=== PATIENT | male | born 1965 | race Caucasian/White ===

== ENCOUNTER 2016-09-30 15:18 | Inpatient (IN) | payer OTHER, SELFPAY ==
[~2016-09-30] VITALS: Ht 177.8 cm; Wt 73.0 kg
[~2016-09-30 15:18] MED LIST: CIPR500T2 PO; HYDR10TA16 PO; Z.0.NO CURRENT MEDS; [UNRECOGNIZED DRUG - OTHER] PO
[2016-09-30 15:19] VITALS: BP 137/81; PULSE 129; RESP 20; TEMP 99.6; O2SAT 99
[2016-09-30] MEDS ORDERED: SODIUM CHLOR 0.9% 1000 ML INJ 1,000 ML IV SCH (20:37)
[2016-09-30 20:40] VITALS: BP 127/72; PULSE 114; RESP 18; TEMP 98.6; O2SAT 100
[2016-09-30 20:41] VITALS: RESP 18; O2SAT 100
--- NOTE | 2016-09-30 20:41 | PD ---
HPI Chief Complaint: GI Complaint Time Seen by Provider: 20:36 Travel History International Travel<30 days: No Contact w/Intl Traveler<30days: No Traveled to known affect area: No History of Present Illness HPI 51-year-old male presents for evaluation. For the past month he has been having lower abdominal pain, daily diarrhea, decreased appetite, occasional nausea and vomiting. He reports multiple episodes of watery diarrhea daily, up to 20 times a day. He reports mild aching pain in the left right lower quadrants of the abdomen which has been worsening. He also notes some rectal pain associated with the diarrhea. He endorses decreased urine output. Does report that prior to be started the diarrhea and abdominal pain is having occasional bright red blood per rectum. For the Past 4 days has been having fevers as high as 102. He denies any cough, congestion, rash, recent travel, neck stiffness, dietary change, recent antibiotic use. No sick contacts. No dysuria, flank pain. No other complaints. PFSH Past Medical History Cancer: No Diabetes: No Diminished Hearing: No Glaucoma: No Hepatitis: No Hiatal Hernia: No Hypertension: No Kidney Stones: Yes Thyroid Disease: No Tetanus Vaccination: Unknown Influenza Vaccination: No Past Surgical History Genitourinary Surgery: Yes (LITHOTRIPSY 02/2010) Pacemaker: No Social History Alcohol Use: Yes (SOCIALLY, NOT CURRENTLY) Tobacco Use: No (QUIT) Substance Use: No Allergies-Medications (Allergen,Severity, Reaction): Coded Allergies: [place] (Verified Allergy, Mild, 09/30/16) Reported Meds & Prescriptions Reported Meds & Active Scripts Active Review of Systems Except as stated in HPI: all other systems reviewed are Neg Physical Exam Narrative GENERAL: Well-developed well-nourished male in no acute distress SKIN: Warm and dry. HEAD: Atraumatic. Normocephalic. EYES: Pupils equal and round. No scleral icterus. No injection or drainage. ENT: No nasal bleeding or discharge. Mucous membranes pink and moist. NECK: Trachea midline. No JVD. CARDIOVASCULAR: Regular rate and rhythm. No murmur appreciated. RESPIRATORY: No accessory muscle use. Clear to auscultation. Breath sounds equal bilaterally. GASTROINTESTINAL: Abdomen soft, no tenderness to palpation left to right lower quadrant without guarding. Rectal examination reveals no evidence of perirectal abscess, he is Hemoccult-positive. MUSCULOSKELETAL: No obvious deformities. No clubbing. No cyanosis. No edema. NEUROLOGICAL: Awake and alert. No obvious cranial nerve deficits. Motor grossly within normal limits. Normal speech. PSYCHIATRIC: Appropriate mood and affect; insight and judgment normal. Data Data Last Documented VS Orders Complete Blood Count With Diff (09/30/16 20:37) Comprehensive Metabolic Panel (09/30/16 20:37) Lipase (09/30/16 20:37) Prothrombin Time / Inr (Pt) (09/30/16 20:37) Act Partial Throm Time (Ptt) (09/30/16 20:37) Urinalysis - C+S If Indicated (09/30/16 20:37) Ct Abd/Pel W Iv Contrast(Rout) (09/30/16 20:37) Iv Access Insert/Monitor (09/30/16 20:37) Ecg Monitoring (09/30/16 20:37) Oximetry (09/30/16 20:37) Ondansetron Inj (Zofran Inj) (09/30/16 20:45) Pantoprazole Inj (Protonix Inj) (09/30/16 20:45) Sodium Chlor 0.9% 1000 Ml Inj (Ns 1000 M (09/30/16 20:37) Sodium Chloride 0.9% Flush (Ns Flush) (09/30/16 20:45) Blood Culture (09/30/16 20:37) C Diff Toxin Pcr (09/30/16 20:37) Enteric Path (Stool) (09/30/16 20:37) Lactic Acid Sepsis Protocol (09/30/16 20:37) Morphine Inj (Morphine Inj) (09/30/16 22:15) Ciprofloxacin 400 Mg Premix (Cipro 400 M (09/30/16 22:45) Metronidazole 500 Mg Inj (Flagyl 500 Mg (09/30/16 22:45) Iohexol 350 Inj (Omnipaque 350 Inj) (09/30/16 22:51) Admit Order (Ed Use Only) (09/30/16 23:50) MDM Medical Decision Making Medical Screen Exam Complete: Yes Emergency Medical Condition: Yes Medical Record Reviewed: Yes Differential Diagnosis Diverticulitis, colitis, appendicitis, gastroenteritis, dehydration, GI bleed, pyelonephritis Narrative Course 50-year-old male presents with 1 month of multiple episodes of diarrhea daily, decreased appetite, lower abdominal pain, now with fevers for the past 4 days. A rectal examination was performed revealing no evidence of perirectal abscess, he is Hemoccult-positive. He does note that last month he was having episodes of hematochezia. Plan is for lab work, blood cultures, stool cultures, CT abdomen and pelvis. He was given IV fluids and Zofran. 2100: At the end of my shift the patient is being signed out to Dr. Delvalle pending lab work, imaging studies. [facility] Point of Care Internal Pos. & Neg. Controls: Passed Scripts Hydrocodone-Acetaminophen 5-325 mg Tab2 Tab PO Q4H PRN (PAIN SCALE 5 TO 10) #30 TAB Ref 0 Prov:Shan Michaud MD 10/05/16 Sergey Mendez Sep 30, 2016 20:41 Sergey Mendez Sep 30, 2016 20:41
[2016-09-30] MEDS ORDERED: PANTOPRAZOLE SODIUM 40 MG VIAL IVP ONE (20:45)
[2016-09-30] MEDS ORDERED: ONDANSETRON HCL 4 MG/2 ML VIAL IVP ONE (20:45)
[2016-09-30] MEDS ORDERED: SODIUM CHLORIDE 0.9% FLUSH 10 ML FLUSH IV FLUSH PRN (20:45)
[2016-09-30 21:24] LABS: BLOOD, URINE NEG (NEG); COMMENT (UR) CULT NOT INDICATED; CULTURE IF INDICATED CULT NOT INDICATED; GLUCOSE,URINE NEG (NEG); KETONE, URINE NEG (NEG); MUCUS URINE FEW /lpf (OCC); NITRITE,URINE NEG (NEG); URINE COLOR YELLOW (YELLW/STRAW)
[2016-09-30 21:35] LABS: AUTOMATED NEUTROPHIL # 11.6 TH/MM3 (1.8-7.7); BASOPHIL # 0.1 TH/MM3 (0-0.2); BASOPHIL % 0.5 % (0.0-2.0); EOSINOPHIL % 0.3 % (0.0-4.0); HEMATOCRIT 29.6 % (39.0-51.0); LYMPH % 10.6 % (9.0-44.0); LYMPHOCYTE # 1.6 TH/MM3 (1.0-4.8); MEAN CELL VOLUME 67.6 FL (80.0-100.0); MEAN CORPUSCULAR HEMOGLOBIN 20.8 PG (27.0-34.0); MEAN CORPUSCULAR HGB CONC 30.7 % (32.0-36.0); MONO % 9.6 % (0.0-8.0); PLATELET COUNT 672 TH/MM3 (150-450); RED BLOOD COUNT 4.38 MIL/MM3 (4.50-5.90); RED CELL DISTRIBUTION WIDTH 16.9 % (11.6-17.2); WHITE BLOOD COUNT 14.6 TH/MM3 (4.0-11.0)
[2016-09-30 21:38] LABS: APTT (PATIENT) 29.9 SEC (24.3-30.1); INTERNATIONAL NORMALIZED RATIO 1.2 RATIO; PROTHROMBIN TIME - PATIENT 13.6 SEC (9.8-11.6)
[2016-09-30 21:50] LABS: HEMO FLAGS AUTO DIFF
[2016-09-30 21:54] LABS: ANION GAP 12 MEQ/L (5-15); AST (GOT) 10 U/L (15-37); BICARBONATE 25.7 MEQ/L (21.0-32.0); BLOOD UREA NITROGEN 11 MG/DL (7-18); CHLORIDE 95 MEQ/L (98-107); GLOMERULAR FILTRATION RATE 82 ML/MIN (>89); POTASSIUM 3.6 MEQ/L (3.5-5.1); SODIUM (NA) 133 MEQ/L (136-145)
[2016-09-30 21:59] LABS: ALKALINE PHOSPHATASE 88 U/L (45-117); ALT (GPT) 17 U/L (12-78); TOTAL BILIRUBIN ADULT 0.5 MG/DL (0.2-1.0)
[2016-09-30] MEDS ORDERED: MORPHINE SULFATE 4 MG/ML INJ IV PUSH ONE (22:15)
[2016-09-30 22:45] LABS: BANDS 11 % (0-6); BASOPHILS 1 % (0-2); EOSINOPHILS 1 % (0-4); MYELOCYTES 1 % (0-0); NEUTROPHIL # MANUAL DIFF 11.5 TH/MM3 (1.8-7.7); POLYS (SEG NEUTROPHILS) 67 % (16-70); SCAN/DIFF FINAL DIFF MANUAL; WBC DIFF SAMPLE 100
[2016-09-30] MEDS ORDERED: CIPROFLOXACIN 400 MG PREMIX 200 ML IV ONE (22:45)
[2016-09-30] MEDS ORDERED: metroNIDAZOLE 500 MG INJ 100 ML IV ONE (22:45)
[2016-09-30 22:47] LABS: OVALOCYTES 1+ (NORMAL); PLATELET ESTIMATE SMEAR HIGH (NORMAL); PLATELET MORPHOLOGY NORMAL (NORMAL); TOXIC GRANULATION 1+ (NORMAL)
[2016-09-30] MEDS ORDERED: IOHEXOL 350 MG/ML 10 ML VIAL (for RAD DIAG) IV ONE (22:51)
[2016-09-30 23:14] LABS: C. DIFF EPI 027 PRESUMPTIVE NEGATIVE (NEGATIVE); C. DIFF TOXIN PCR NEGATIVE (NEGATIVE)
--- NOTE | 2016-09-30 23:22 | RADRPT ---
EXAM DATE/TIME: 09/30/2016 22:49 [place] COMPARISON: No previous studies available for comparison. INDICATIONS : Increased fever for 3 days with diffuse abdominal and anal pain; diarrhea. IV CONTRAST: 93 cc Omnipaque 350 (iohexol) IV ORAL CONTRAST: No oral contrast ingested. RADIATION DOSE: 7.64 CTDIvol (mGy) MEDICAL HISTORY : Renal calculi. SURGICAL HISTORY : Lithotripsy ENCOUNTER: Initial ACUITY: 3 days PAIN SCALE: 5/10 LOCATION: Abdomen/pelvis TECHNIQUE: Volumetric scanning of the abdomen and pelvis was performed. Using automated exposure control and ad justment of the mA and/or kV according to patient size, radiation dose was kept as low as reasonably achievable to obtain optimal diagnostic quality images. FINDINGS: Lung bases are clear. There is marked abnormality in the perirectal and perianal region. The rectal wall is thickened to at least 2.4 cm and there is a suspected 3.1 cm perirectal abscess. The rectal wall thickening extends cephalad to the distal colon. They also appear to be small bowel loops tethered to this presumed infl ammatory process. Cannot exclude neoplasm. There is associated severe constipation. Direct visualizat ion of this area would be recommended. As the small bowel obstruction. No free air or significant free fluid. No acute findings the liver, spleen, kidneys, right adrenal pancreas. 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 No acute bony abnormality. CONCLUSION: 1. Markedly abnormal anorectal region with mural thickening of the rectum extending cephalad into the distal sigmoid colon. Rectal wall is thickened up to 2.4 cm and there is a questionable 3 cm perirec lizeth abscess. Cannot exclude neoplasm. There is associated severe constipation. Jasiel Cruz MD on September 30, 2016 at 23:10 Board Certified Radiologist. This report was verified electronically.
[2016-09-30 23:56] VITALS: BP 115/78; PULSE 107; RESP 18; TEMP 99.7; O2SAT 100
[2016-10-01] VITALS (7 sets, daily range): BP systolic 117–137; BP diastolic 71–85; PULSE 88–102; RESP 17–21; TEMP 98.3–100.6; O2SAT 97–100
--- NOTE | 2016-10-01 00:18 | PD ---
Data Data Last Documented VS Vital Signs Date Time Temp Pulse Resp B/P Pulse Ox O2 Delivery O2 Flow Rate FiO2 09/30/16 20:41 18 100 Room Air 09/30/16 20:40 98.6 114 127/72 Orders Complete Blood Count With Diff (09/30/16 20:37) Comprehensive Metabolic Panel (09/30/16 20:37) Lipase (09/30/16 20:37) Prothrombin Time / Inr (Pt) (09/30/16 20:37) Act Partial Throm Time (Ptt) (09/30/16 20:37) Urinalysis - C+S If Indicated (09/30/16 20:37) Ct Abd/Pel W Iv Contrast(Rout) (09/30/16 20:37) Iv Access Insert/Monitor (09/30/16 20:37) Ecg Monitoring (09/30/16 20:37) Oximetry (09/30/16 20:37) Ondansetron Inj (Zofran Inj) (09/30/16 20:45) Pantoprazole Inj (Protonix Inj) (09/30/16 20:45) Sodium Chlor 0.9% 1000 Ml Inj (Ns 1000 M (09/30/16 20:37) Sodium Chloride 0.9% Flush (Ns Flush) (09/30/16 20:45) Blood Culture (09/30/16 20:37) C Diff Toxin Pcr (09/30/16 20:37) Enteric Path (Stool) (09/30/16 20:37) Lactic Acid Sepsis Protocol (09/30/16 20:37) Morphine Inj (Morphine Inj) (09/30/16 22:15) Ciprofloxacin 400 Mg Premix (Cipro 400 M (09/30/16 22:45) Metronidazole 500 Mg Inj (Flagyl 500 Mg (09/30/16 22:45) Iohexol 350 Inj (Omnipaque 350 Inj) (09/30/16 22:51) Admit Order (Ed Use Only) (09/30/16 23:50) Labs Laboratory Tests Test 09/30/16 20:55 White Blood Count 14.6 TH/MM3 Red Blood Count 4.38 MIL/MM3 Hemoglobin 9.1 GM/DL Hematocrit 29.6 % Mean Corpuscular Volume 67.6 FL Mean Corpuscular Hemoglobin 20.8 PG Mean Corpuscular Hemoglobin 30.7 % Concent Red Cell Distribution Width 16.9 % Platelet Count 672 TH/MM3 Mean Platelet Volume 7.0 FL Neutrophils (%) (Auto) 79.0 % Lymphocytes (%) (Auto) 10.6 % Monocytes (%) (Auto) 9.6 % Eosinophils (%) (Auto) 0.3 % Basophils (%) (Auto) 0.5 % Neutrophils # (Auto) 11.6 TH/MM3 Lymphocytes # (Auto) 1.6 TH/MM3 Monocytes # (Auto) 1.4 TH/MM3 Eosinophils # (Auto) 0.0 TH/MM3 Basophils # (Auto) 0.1 TH/MM3 CBC Comment AUTO DIFF Differential Total Cells 100 Counted Neutrophils % (Manual) 67 % Band Neutrophils % 11 % Lymphocytes % 11 % Monocytes % 8 % Eosinophils % 1 % Basophils % 1 % Neutrophils # (Manual) 11.5 TH/MM3 Myelocytes 1 % Differential Comment FINAL DIFF MANUAL Atypical Lymphocytes % Toxic Granulation 1+ Platelet Estimate HIGH Platelet Morphology Comment NORMAL Ovalocytes 1+ Prothrombin Time 13.6 SEC Prothromb Time International 1.2 RATIO Ratio Activated Partial 29.9 SEC Thromboplast Time Urine Color YELLOW Urine Turbidity CLEAR Urine pH 5.0 Urine Specific [place] 1.015 Urine Protein NEG mg/dL Urine Glucose (UA) NEG mg/dL Urine Ketones NEG mg/dL Urine Occult Blood NEG Urine Nitrite NEG Urine Bilirubin NEG Urine Urobilinogen LESS THAN 2.0 MG/DL Urine Leukocyte Esterase NEG Urine WBC LESS THAN 1 /hpf Urine Mucus FEW /lpf Microscopic Urinalysis Comment CULT NOT INDICATED Stool C. difficile Toxin (PCR) NEGATIVE Stl C. difficile Toxin PRESUMPTIVE Epiderm 027 NEGATIVE Sodium Level 133 MEQ/L Potassium Level 3.6 MEQ/L Chloride Level 95 MEQ/L Carbon Dioxide Level 25.7 MEQ/L Anion Gap 12 MEQ/L Blood Urea Nitrogen 11 MG/DL Creatinine 0.96 MG/DL Estimat Glomerular Filtration 82 ML/MIN Rate Random Glucose 116 MG/DL Lactic Acid Level 1.8 mmol/L Calcium Level 9.1 MG/DL Total Bilirubin 0.5 MG/DL Aspartate Amino Transf 10 U/L (AST/SGOT) Alanine Aminotransferase 17 U/L (ALT/SGPT) Alkaline Phosphatase 88 U/L Total Protein 7.5 GM/DL Albumin 2.9 GM/DL Lipase 64 U/L [facility] Supervised Visit with MARTELL: Yes Narrative Course The history, exam, and medical decision-making in the associated midlevel provider note were completed with my assistance. I reviewed and agree with the findings presented. I attest that I had a [id number] encounter with the patient on the same day, and personally performed and documented my assessment and findings in the medical record. *My assessment and Findings: This is a 51-year-old male who presents with subacute lower abdominal pain, copious diarrhea and rectal discomfort associated with fevers. On arrival he had a low-grade fever and was tachycardic. He is leukocytosis with a bandemia. Lactic acid is normal. Patient was given IV Cipro, Flagyl and IV fluids. CT scan demonstrates rectal abnormality with a possible perirectal abscess although none was appreciated on physician technical services assistant exam. There is also a concern for possible malignancy. I think the patient would benefit from colorectal consultation and continued antibiotic therapy. Patient was admitted. Physician Communication Physician Communication Discussed with Dr. Gallegos Diagnosis Primary Impression: Sepsis Qualified Code: A41.9 - Sepsis, due to unspecified organism Admitting Information Admitting Physician Requests: it Jihan Delvalle MD Oct 01, 2016 00:18
[2016-10-01] MEDS ORDERED: ACETAMINOPHEN 325 MG TAB PO PRN (00:30)
[2016-10-01] MEDS ORDERED: MORPHINE SULFATE 4 MG/ML INJ IV PRN (00:30)
[2016-10-01] MEDS ORDERED: NALOXONE HCL 0.4 MG/ML AMP IV PRN (00:30)
[2016-10-01] MEDS ORDERED: ACETAMINOPHEN 325 MG TAB PO ONE (00:30)
[2016-10-01] MEDS ORDERED: SODIUM CHLORIDE 0.9% FLUSH 10 ML FLUSH IV FLUSH PRN (00:30)
[2016-10-01] MEDS ORDERED: ONDANSETRON HCL 4 MG/2 ML VIAL IVP PRN (00:30)
[2016-10-01] MEDS ORDERED: METOCLOPRAMIDE HCL 10 MG/2 ML VIAL IV PUSH PRN (00:30)
[2016-10-01] MEDS ORDERED: oxyCODONE/ACETAMINOPHEN 5 MG/325 MG TAB PO PRN (00:30)
[2016-10-01] MEDS: oxyCODONE/ACETAMINOPHEN 10 MG/325 MG TAB PO PRN ×3 (00:40→20:29)
[2016-10-01] MEDS: SODIUM CHLOR 0.9% 1000 ML INJ 1,000 ML IV SCH ×3 (01:08→20:16)
--- NOTE | 2016-10-01 04:57 | HHI.HP ---
[facility] No Primary Care Physician Admission Diagnosis sepsis, perirectal abscess Diagnoses: Travel History International Travel<30 Days: No Contact w/Intl Traveler <30 Da: No Traveled to Known Affected Are: No History of Present Illness 51-year-old male with history of nephrolithiasis, back surgery 30 years ago, who presents with a four-day history of dull, intermittent, nonradiating lower abdominal pain, worse with urination, as well as sharp intermittent, nonradiating rectal pain, exacerbations of which are accompanied by fevers, as high as 101. He also reports watery diarrhea over this time, feels as if urine is backing up from his bladder and going through rectum. Denies any dysuria, does report lower abdominal pain with urination. Patient reports an 85 pound weight loss over the past year which she is accomplished with diet and exercise. Review of Systems Performed and negative except for history of present illness and past medical history. Past Family Social History Past Medical History Nephrolithiasis, with kidney infection in 2010 Past Surgical History Lithotripsy Back surgery 30 years ago Reported Medications Advil [id number] as needed. Allergies: Coded Allergies: [place] (Verified Allergy, Mild, 09/30/16) Family History Mother with nasal cancer, passed way from [facility] at 81 years old. Father with pancreatic cancer past with age 77 Social History Patient smoked one pack per day for 20 years, quit 20 years ago. Patient smokes marijuana occasionally. Physical Exam Vital Signs Vital Signs Date Time Temp Pulse Resp B/P Pulse Ox O2 Delivery O2 Flow Rate FiO2 09/30/16 23:56 99.7 107 18 115/78 100 Room Air 09/30/16 20:41 18 100 Room Air 09/30/16 20:40 98.6 114 18 127/72 100 Room Air 09/30/16 15:19 99.6 129 20 137/81 99 Room Air Physical Exam GENERAL: This is a well-nourished, well-developed patient, in no apparent distress. Alert and oriented 3. SKIN: No rashes, ecchymoses or lesions. Cool and dry. HEAD: Atraumatic. Normocephalic. No temporal or scalp tenderness. EYES: Pupils equal round and reactive. Extraocular motions intact. No scleral icterus. No injection or drainage. ENT: Nose without bleeding, purulent drainage or septal hematoma. Throat without erythema, tonsillar hypertrophy or exudate. Uvula midline. Airway patent. NECK: Trachea midline. No JVD or lymphadenopathy. Supple, nontender, no meningeal signs. CARDIOVASCULAR: Regular rate and rhythm without murmurs, gallops, or rubs. RESPIRATORY: Clear to auscultation. Breath sounds equal bilaterally. No wheezes , rales, or rhonchi. GASTROINTESTINAL: Abdomen soft, nondistended. No hepato-splenomegaly, or palpable masses. No guarding. Patient does have tenderness to moderate palpation in bilateral lower abdominal quadrants. MUSCULOSKELETAL: Extremities without clubbing, cyanosis, or edema. No joint tenderness, effusion, or edema noted. No calf tenderness. Negative Homans sign bilaterally. NEUROLOGICAL: Awake and alert. Cranial nerves II through XII intact. Motor and sensory grossly within normal limits. Five out of 5 muscle strength in all muscle groups. Normal speech. Laboratory Laboratory Tests Test 09/30/16 20:55 White Blood Count 14.6 Red Blood Count 4.38 Hemoglobin 9.1 Hematocrit 29.6 Mean Corpuscular Volume 67.6 Mean Corpuscular Hemoglobin 20.8 Mean Corpuscular Hemoglobin 30.7 Concent Red Cell Distribution Width 16.9 Platelet Count 672 Mean Platelet Volume 7.0 Neutrophils (%) (Auto) 79.0 Lymphocytes (%) (Auto) 10.6 Monocytes (%) (Auto) 9.6 Eosinophils (%) (Auto) 0.3 Basophils (%) (Auto) 0.5 Neutrophils # (Auto) 11.6 Lymphocytes # (Auto) 1.6 Monocytes # (Auto) 1.4 Eosinophils # (Auto) 0.0 Basophils # (Auto) 0.1 CBC Comment AUTO DIFF Differential Total Cells 100 Counted Neutrophils % (Manual) 67 Band Neutrophils % 11 Lymphocytes % 11 Monocytes % 8 Eosinophils % 1 Basophils % 1 Neutrophils # (Manual) 11.5 Myelocytes 1 Differential Comment FINAL DIFF MANUAL Atypical Lymphocytes Toxic Granulation 1+ Platelet Estimate HIGH Platelet Morphology Comment NORMAL Ovalocytes 1+ Prothrombin Time 13.6 Prothromb Time International 1.2 Ratio Activated Partial 29.9 Thromboplast Time Urine Color YELLOW Urine Turbidity CLEAR Urine pH 5.0 Urine Specific [place] 1.015 Urine Protein NEG Urine Glucose (UA) NEG Urine Ketones NEG Urine Occult Blood NEG Urine Nitrite NEG Urine Bilirubin NEG Urine Urobilinogen LESS THAN 2.0 Urine Leukocyte Esterase NEG Urine WBC LESS THAN 1 Urine Mucus FEW Microscopic Urinalysis Comment CULT NOT INDICATED Stool C. difficile Toxin (PCR) NEGATIVE Stl C. difficile Toxin PRESUMPTIVE Epiderm 027 NEGATIVE Sodium Level 133 Potassium Level 3.6 Chloride Level 95 Carbon Dioxide Level 25.7 Anion Gap 12 Blood Urea Nitrogen 11 Creatinine 0.96 Estimat Glomerular Filtration 82 Rate Random Glucose 116 Lactic Acid Level 1.8 Calcium Level 9.1 Total Bilirubin 0.5 Aspartate Amino Transf 10 (AST/SGOT) Alanine Aminotransferase 17 (ALT/SGPT) Alkaline Phosphatase 88 Total Protein 7.5 Albumin 2.9 Lipase 64 Date/Time Procedure Status Source Growth 09/30/16 21:00 Aerobic Blood Culture Received Blood Peripheral Pending 09/30/16 21:00 Anaerobic Blood Culture Received Blood Peripheral Pending 09/30/16 20:55 Received Stool Stool Pending Result Diagram: 09/30/16205409/30/162054 Imaging Last Impressions Abdomen/Pelvis CT 09/30/162036 Signed Impressions: Service Date/Time: Friday, September 30, 2016 22:49 - CONCLUSION: 1. Markedly abnormal anorectal region with mural thickening of the rectum extending cephalad into the distal sigmoid colon. Rectal wall is thickened up to 2.4 cm and there is a questionable 3 cm perirectal abscess. Cannot exclude neoplasm. There is associated severe constipation. Jasiel Cruz MD Assessment and Plan Assessment and Plan //Sepsis. Leukocytosis, tachycardia -Likely secondary to perirectal abscess as on CT. -Blood cultures pending. Urinalysis appears noninfectious. -Continue Cipro and Flagyl started in the ER Await colorectal surgery consultation. //Microcytic Anemia. -Suspect iron deficiency anemia, likely from chronic lower GI bleed. //Perirectal abscess //Possible malignancy. //Severe constipation on CT. -With intentional weight loss 85 pounds over the past year PSA ordered and pending. Antibiotics.- -Laxative unlikely to be useful in the setting of obstruction -Colorectal surgery evaluation. //Hyponatremia. Mild. Follow. //Prophylaxis. SCDs. AC as per surgical service Discussed Condition With Patient, nurse, ED physician. Physician Certification 2 Midnight Certification Type: Admission for Inpatient Services Order for Inpatient Services The services are ordered in accordance with Medicare regulations or non- Medicare payer requirements, as applicable. In the case of services not specified as inpatient-only, they are appropriately provided as inpatient services in accordance with the 2-midnight benchmark. Estimated LOS (days): 2 days is the estimated time the patient will need to remain in the hospital, assuming treatment plan goals are met and no additional complications. Post-Hospital Plan: Not yet determined Jhon Gallegos MD Oct 01, 2016 04:57
[2016-10-01] MEDS: metroNIDAZOLE 500 MG INJ 100 ML IV SCH ×4 (07:24→23:03)
[2016-10-01] MEDS: SODIUM CHLORIDE 0.9% FLUSH 10 ML FLUSH IV FLUSH SCH ×2 (09:00→20:34)
[2016-10-01] MEDS ORDERED: MAGNESIUM CITRATE SOLN 300 ML BTL PO ONE (09:00)
[2016-10-01] MEDS: CIPROFLOXACIN 400 MG PREMIX 200 ML IV SCH ×2 (11:24→20:28)
[2016-10-01] MEDS ORDERED: LACTATED RINGER'S 1000 ML INJ 1,000 ML IV ONE ×2 (12:00)
[2016-10-01] MEDS ORDERED: PROPOFOL 200 MG/20 ML AMP IV ONE ×2 (12:00)
[2016-10-01] MEDS ORDERED: PHENYLEPH/NS 1000 MCG/10 ML SYR IV ONE ×2 (12:00)
--- NOTE | 2016-10-01 17:33 | HHI.PR ---
Subjective Remarks This is a pleasant 51 y/o male with history of Nephrolithiasis, back surgery 30 years ago, came to ER with abdominal pain Rectal pain, fever, was admitted with diagnosis of Sepsis, started on Cipro and Flagyl, status post consult by Colon and rectal development specialist, has Perirectal Abscess, rule out Malignancy, has Severe Constipation on CT scan, will have procedure later today, at this time with his Son in the room. following. Objective Vital Signs Date Time Temp Pulse Resp B/P Pulse Ox O2 Delivery O2 Flow Rate FiO2 10/01/16 16:00 100.6 102 18 137/80 98 10/01/16 14:28 91 17 123/85 98 10/01/16 12:45 99.6 97 19 128/80 97 Room Air 10/01/16 09:31 16 10/01/16 07:25 97 17 131/80 100 Room Air 10/01/16 04:47 88 18 120/75 100 Room Air 09/30/16 23:56 99.7 107 18 115/78 100 Room Air 09/30/16 20:41 18 100 Room Air 09/30/16 20:40 98.6 114 18 127/72 100 Room Air I/O 09/30/16 09/30/16 09/30/16 10/01/16 10/01/16 10/01/16 07:00 15:00 23:00 07:00 15:00 23:00 Intake Total 150 ml Balance 150 ml Intake Oral 150 ml # Voids 1 # Bowel Movements 1 Result Diagram: 09/30/16205409/30/162054 Nagi Isabel MD Oct 01, 2016 17:33
[2016-10-01] MEDS ORDERED: BUPIVACAINE/EPINEPHRINE 0.5% PF 30 ML VIAL ONE (18:05)
[2016-10-01] MEDS ORDERED: LIDOCAINE 1%/EPINEPHrine 1:100,000 SOLN 50 ML VIAL ONE (18:06)
[2016-10-01] MEDS ORDERED: BACITRACIN TOP OINT 15 GM TUBE ONE (18:06)
[2016-10-01] MEDS ORDERED: MIDAZOLAM HCL 2 MG/2 ML VIAL ONE (19:15)
--- NOTE | 2016-10-01 19:16 | HHI.PR ---
Immediate Post Op Note Procedure Date: Oct 01, 2016 Pre Op Diagnosis: Rectal mass/abscess Post Op Diagnosis: Lg rectal cancer Surgeon: Shan Michaud Automation Driver(s): none Procedure: EUA, Sigmoidoscopy/bx Findings: lg cancer rectum, partially obstructing - bx Complications: none Specimen(s) removed: rectal bx Estimated blood loss: min Anesthesia: MAC Drains: None IVF Patient to: PACU Patient Condition: Good Shan Michaud MD Oct 01, 2016 19:16
[2016-10-02] VITALS (8 sets, daily range): BP systolic 121–134; BP diastolic 64–88; PULSE 97–114; RESP 18–20; TEMP 97.6–98.9; O2SAT 96–99
[2016-10-02] MEDS: oxyCODONE/ACETAMINOPHEN 10 MG/325 MG TAB PO PRN ×2 (02:12→09:49)
[2016-10-02 04:55] LABS: AUTOMATED NEUTROPHIL # 7.5 TH/MM3 (1.8-7.7); BASOPHIL % 0.4 % (0.0-2.0); EOSINOPHIL # 0.2 TH/MM3 (0-0.4); EOSINOPHIL % 1.6 % (0.0-4.0); HEMATOCRIT 24.7 % (39.0-51.0); LYMPH % 12.2 % (9.0-44.0); LYMPHOCYTE # 1.2 TH/MM3 (1.0-4.8); MEAN CELL VOLUME 67.7 FL (80.0-100.0); MEAN CORPUSCULAR HEMOGLOBIN 21.4 PG (27.0-34.0); MEAN CORPUSCULAR HGB CONC 31.6 % (32.0-36.0); MONO % 10.3 % (0.0-8.0); NEUT % 75.5 % (16.0-70.0); PLATELET COUNT 530 TH/MM3 (150-450); RED BLOOD COUNT 3.65 MIL/MM3 (4.50-5.90); RED CELL DISTRIBUTION WIDTH 17.2 % (11.6-17.2); WHITE BLOOD COUNT 9.9 TH/MM3 (4.0-11.0)
[2016-10-02 04:57] LABS: HEMO FLAGS AUTO DIFF
[2016-10-02 05:05] LABS: BICARBONATE 29.1 MEQ/L (21.0-32.0); MAGNESIUM 2.4 MG/DL (1.5-2.5); POTASSIUM 4.2 MEQ/L (3.5-5.1)
[2016-10-02 05:42] LABS: OVALOCYTES 1+ (NORMAL)
[2016-10-02 05:43] LABS: SCAN/DIFF AUTO DIFF CONFIRMED
[2016-10-02] MEDS: SODIUM CHLOR 0.9% 1000 ML INJ 1,000 ML IV SCH (06:50)
[2016-10-02] MEDS: metroNIDAZOLE 500 MG INJ 100 ML IV SCH ×3 (06:50→20:49)
[2016-10-02] MEDS ORDERED: SODIUM CHLOR 0.9% 250 ML INJ 250 ML IV ONE (08:00)
--- NOTE | 2016-10-02 08:03 | MB ---
cc: BEV VICENTE DATE OF CONSULTATION 10/02/2016 REASON FOR CONSULTATION I have been asked to see the patient by Dr. Shan Michaud who is a colorectal surgeon for a new diagnosis of rectal cancer. PATIENT PROFILE The patient is a 51-year white male who is . He was once. He lives alone. He has two children a son age 22 and another age 23. He has not worked in several years. In the past, he was in the [employer] business in [place], [place]. He recently returned from [place] to this area in February of 2016 and prior to coming here was taking care of his mother who required a caregiver and has since . Tobacco: the patient stopped smoking 15 years ago and previously smoked a pack of cigarettes per day for 20 years. He has two or three drinks a week. HISTORY OF PRESENT ILLNESS The patient is a 51-year-old male who dates his current problem back to approximately May 2016 when he developed diarrhea and episodic constipation. He has had a 70-80 pounds weight loss over the past one to two years. He has had occasional abdominal cramps. Three or four days ago he felt worse and noted fevers in the range of 102. It is for this reason that he went to the emergency room. He also has had a slight amount of blood per rectum. He had a CT of the abdomen and pelvis on 09/30/2016. This showed a markedly abnormal anorectal region with mural thickening of the rectum extending cephalad into the distal sigmoid colon. The rectal wall was thickened up to 2.4 cm and there was a questionable 3 cm perirectal abscess. There was associated severe constipation. Other studies include a hemoglobin of 7.8, white count 9900, platelets 530,000, MCV of 67. endoscopy showed a rectal mass Lytes, BUN, creatinine and liver function tests are normal except for an albumin of 2.9. A CEA is 11.8. A PSA is 0.46. PAST SURGICAL HISTORY 1. Lithotripsy eight years ago 2. Greater than 20 years ago, the patient had surgery involving the lumbosacral spine at L5 and S1 for a herniated disk. PAST MEDICAL HISTORY No previous medical problems. MEDICATIONS None ALLERGIES No allergies to medications. FAMILY HISTORY Father at age 77 of pancreatic cancer. Mother at age 81 of congestive heart failure. The patient has four sisters who are well and have no history of malignancy. REVIEW OF SYSTEMS VISION: No problem. HEARING: Hearing is fine. CARDIOVASCULAR: No chest pain, palpitations, orthopnea, PND. RESPIRATORY: No fever, night sweats, chills, cough, shortness of breath. GI: Notable for abdominal pain, cramping, diarrhea, constipation, occasional blood. : Over the past several days he has had some difficulty initiating urinary stream. MUSCULOSKELETAL: No bone pain. NEUROLOGIC: No weakness. PSYCHIATRIC: No problems. SKIN: No problems. PHYSICAL EXAM: Physical exam reveals a gentleman who appears chronically ill. He is gaunt and pale. VITAL SIGNS: Blood pressure 130/80, respiratory rate 20, pulse 90, afebrile. O2 sat 99%. HEAD: Normocephalic. Sclerae and conjunctivae are normal. Oropharynx unremarkable. NECK: There is no cervical, supraclavicular, axillary or inguinal adenopathy. HEART: Regular rhythm. LUNGS: Clear without rales, wheezes or rhonchi. ABDOMEN: Soft. No hepatosplenomegaly. No masses. EXTREMITIES: No edema. MUSCULOSKELETAL: No bone pain. NEUROLOGIC: No weakness. RECTAL: I can feel a tumor as soon as the finger is extended several centimeters into the anal canal. I did not go beyond this as the exam became painful, but the tumor is palpable at the anorectal verge. ASSESSMENT The patient is a 51-year-old male. He has a locally advanced carcinoma which appears to originate in the rectum. PLAN 1. I have spoken with Dr. Michaud and the patient will require a diverting colostomy. He is already having signs and symptoms of obstruction. He has lost 60 or [address] scan of the thorax to rule out metastatic disease. 3. Assuming that this is a rectal cancer and that there is not extensive metastatic disease to the lungs, I would recommend radiation therapy with oral Xeloda preoperatively. Following this, he should undergo surgery. Following this, he would receive some form of adjuvant chemotherapy. This was explained to the patient. I discussed this with Dr. Michaud. I also spoke to the patients ex- to is a nurse and has worked at [employer] for many years. MD BUSHRA Chris/JEET Elliott: 10/02/2016/6:56 AM /7:42 AM [email or web address]
[2016-10-02] MEDS ORDERED: IOHEXOL 350 MG/ML 10 ML VIAL (for RAD DIAG) IV ONE (08:04)
--- NOTE | 2016-10-02 08:16 | RADRPT ---
EXAM DATE/TIME: 10/02/2016 08:01 [facility] COMPARISON: CT ABDOMEN & PELVIS W CONTRAST, September 30, 2016, 22:49. INDICATIONS : History of rectal cancer, evaluate for metastatic disease. IV CONTRAST: 50 cc Omnipaque 350 (iohexol) IV RADIATION DOSE: 4.11 CTDIvol (mGy) MEDICAL HISTORY : Carcinoma, rectal. SURGICAL HISTORY : None. ENCOUNTER: Initial ACUITY: 1 day PAIN SCALE: 0/10 LOCATION: chest TECHNIQUE: Volumetric scanning of the chest was performed. Using automated exposure control and adjustment of t he mA and/or kV according to patient size, radiation dose was kept as low as reasonably achievable to obtain optimal diagnostic quality images. FINDINGS: Examination of the lung mayer demonstrates no evidence of pulmonary nodule. No pleural fluid is iden tified. Examination of the mediastinum demonstrates no abnormally enlarged lymph nodes by CT criteria. No axi llary or hilar abnormalities are identified. Coronary artery calcifications are present. 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 No evidence of acute thoracic abnormality. No masses are identified. No evidence of metastatic dis ease. Buck Quiroz MD on October 02, 2016 at 8:10 Board Certified Radiologist. This report was verified electronically.
[2016-10-02 08:31] LABS: FERRITIN 290 NG/ML (26-388); TRANSFERRIN IRON PROFILE 119 MG/DL (200-360)
[2016-10-02] MEDS: SODIUM CHLORIDE 0.9% FLUSH 10 ML FLUSH IV FLUSH SCH (09:00)
[2016-10-02] MEDS: CIPROFLOXACIN 400 MG PREMIX 200 ML IV SCH (09:51)
--- NOTE | 2016-10-02 10:02 | HHI.PR ---
Subjective Remarks This is a pleasant 51 y/o male with history of Nephrolithiasis, back surgery 30 years ago, came to ER with abdominal pain Rectal pain, fever, was admitted with diagnosis of Sepsis, started on Cipro and Flagyl, status post consult by Colon and rectal surgery manager, now status post Sigmoidoscopy, found Large Rectal Cancer, status post Biopsy. by Doctor Lazaromariano Seen in his bedroom in the presence of his Ex and his Son and he states with his family that he is very confident that with treatment he will do better, no Nausea, vomit or diarrhea stable. he will need Dietitian consult after procedures performed. Objective Vital Signs Date Time Temp Pulse Resp B/P Pulse Ox O2 Delivery O2 Flow Rate FiO2 10/02/16 08:00 98.9 114 20 132/77 97 10/01/16 23:42 98.3 97 21 132/79 99 10/01/16 20:00 99.0 98 20 117/71 97 10/01/16 19:30 100 15 115/73 95 Room Air 10/01/16 19:15 100 17 126/85 97 Nasal Cannula 2 10/01/16 19:10 99.7 90 15 115/76 99 Nasal Cannula 2 10/01/16 16:00 100.6 102 18 137/80 98 10/01/16 14:28 91 17 123/85 98 10/01/16 12:45 99.6 97 19 128/80 97 Room Air I/O 10/01/16 10/01/16 10/01/16 10/02/16 10/02/16 10/02/16 07:00 15:00 23:00 07:00 15:00 23:00 Intake Total 150 ml 1120 ml 1251 ml Output Total 6 ml Balance 150 ml 1114 ml 1251 ml Intake Oral 150 ml 120 ml 240 ml IV Total 1011 ml Other 1000 ml Output Stool Total 1 ml Estimated Blood Loss 5 ml # Voids 1 2 # Bowel Movements 0 0 Result Diagram: 10/02/1643110/02/16 043 Imaging Last Impressions Chest CT 10/02/16 0600 Signed Impressions: Service Date/Time: Sunday, October 02, 2016 08:01 - CONCLUSION: 1. No evidence of acute thoracic abnormality. No masses are identified. No evidence of metastatic disease. Buck Quiroz MD Abdomen/Pelvis CT 09/30/[id number] Signed Impressions: Service Date/Time: Friday, September 30, 2016 22:49 - CONCLUSION: 1. Markedly abnormal anorectal region with mural thickening of the rectum extending cephalad into the distal sigmoid colon. Rectal wall is thickened up to 2.4 cm and there is a questionable 3 cm perirectal abscess. Cannot exclude neoplasm. There is associated severe constipation. Jasiel Cruz MD Procedures Status post Sigmoidoscopy and Biopsy Other Results Laboratory Tests Test 09/30/16 10/01/16 10/02/16 20:55 06:36 04:32 Differential Total Cells 100 Counted Neutrophils % (Manual) 67 % Band Neutrophils % 11 % Lymphocytes % 11 % Monocytes % 8 % Eosinophils % 1 % Basophils % 1 % Neutrophils # (Manual) 11.5 TH/MM3 Myelocytes 1 % Atypical Lymphocytes % Toxic Granulation 1+ Platelet Estimate HIGH Platelet Morphology Comment NORMAL Prothrombin Time 13.6 SEC Prothromb Time International 1.2 RATIO Ratio Activated Partial 29.9 SEC Thromboplast Time Urine Color YELLOW Urine Turbidity CLEAR Urine pH 5.0 Urine Specific [place] 1.015 Urine Protein NEG mg/dL Urine Glucose (UA) NEG mg/dL Urine Ketones NEG mg/dL Urine Occult Blood NEG Urine Nitrite NEG Urine Bilirubin NEG Urine Urobilinogen LESS THAN 2.0 MG/DL Urine Leukocyte Esterase NEG Urine WBC LESS THAN 1 /hpf Urine Mucus FEW /lpf Microscopic Urinalysis Comment CULT NOT INDICATED Stool C. difficile Toxin (PCR) NEGATIVE Stl C. difficile Toxin PRESUMPTIVE Epiderm 027 NEGATIVE Lactic Acid Level 1.8 mmol/L Total Bilirubin 0.5 MG/DL Aspartate Amino Transf 10 U/L (AST/SGOT) Alanine Aminotransferase 17 U/L (ALT/SGPT) Alkaline Phosphatase 88 U/L Total Protein 7.5 GM/DL Albumin 2.9 GM/DL Lipase 64 U/L Prostate Specific Antigen 0.46 NG/ML White Blood Count 9.9 TH/MM3 Red Blood Count 3.65 MIL/MM3 Hemoglobin 7.8 GM/DL Hematocrit 24.7 % Mean Corpuscular Volume 67.7 FL Mean Corpuscular Hemoglobin 21.4 PG Mean Corpuscular Hemoglobin 31.6 % Concent Red Cell Distribution Width 17.2 % Platelet Count 530 TH/MM3 Mean Platelet Volume 6.4 FL Neutrophils (%) (Auto) 75.5 % Lymphocytes (%) (Auto) 12.2 % Monocytes (%) (Auto) 10.3 % Eosinophils (%) (Auto) 1.6 % Basophils (%) (Auto) 0.4 % Neutrophils # (Auto) 7.5 TH/MM3 Lymphocytes # (Auto) 1.2 TH/MM3 Monocytes # (Auto) 1.0 TH/MM3 Eosinophils # (Auto) 0.2 TH/MM3 Basophils # (Auto) 0.0 TH/MM3 CBC Comment AUTO DIFF Differential Comment AUTO DIFF CONFIRMED Ovalocytes 1+ Sodium Level 139 MEQ/L Potassium Level 4.2 MEQ/L Chloride Level 105 MEQ/L Carbon Dioxide Level 29.1 MEQ/L Anion Gap 5 MEQ/L Blood Urea Nitrogen 7 MG/DL Creatinine 0.78 MG/DL Estimat Glomerular Filtration 104 ML/MIN Rate Random Glucose 87 MG/DL Calcium Level 8.5 MG/DL Phosphorus Level 3.2 MG/DL Magnesium Level 2.4 MG/DL Iron Level 10 MCG/DL Total Iron Binding Capacity 167 MCG/DL Percent Iron Saturation 6.0 % Ferritin 290 NG/ML Carcinoembryonic Antigen 11.8 NG/ML Objective Remarks GENERAL: No acute distress. SKIN: No rashes, ecchymoses or lesions. Cool and dry. HEAD: Atraumatic. Normocephalic. No temporal or scalp tenderness. EYES: Pupils equal round and reactive. Extraocular motions intact. No scleral icterus. No injection or drainage. ENT: Nose without bleeding, purulent drainage or septal hematoma. Throat without erythema, tonsillar hypertrophy or exudate. Uvula midline. Airway patent. NECK: Trachea midline. No JVD or lymphadenopathy. Supple, nontender, no meningeal signs. CARDIOVASCULAR: Regular rate and rhythm without murmurs, gallops, or rubs. RESPIRATORY: Clear to auscultation. Breath sounds equal bilaterally. No wheezes , rales, or rhonchi. GASTROINTESTINAL: Abdomen soft, nondistended. No hepato-splenomegaly, or palpable masses. No guarding. Patient does have tenderness to moderate palpation in bilateral lower abdominal quadrants. MUSCULOSKELETAL: Extremities without clubbing, cyanosis, or edema. No joint tenderness, effusion, or edema noted. No calf tenderness. Negative Homans sign bilaterally. NEUROLOGICAL: Awake and alert. Cranial nerves II through XII intact. Motor and sensory grossly within normal limits. Five out of 5 muscle strength in all muscle groups. Normal speech. Medications and IVs Current Medications Medications (Trade) Dose Ordered Sig/Kirt Route Start Time Stop Time Status Last Admin (NS 1000 ml Inj) 1,000 ml @ 100 mls/hr Q10H IV 10/01/16 00:16 10/02/16 06:50 (NS Flush) 2 ml UNSCH PRN IV FLUSH 10/01/16 00:30 (NS Flush) 2 ml BID IV FLUSH 10/01/16 09:00 10/02/16 09:00 (Zofran Inj) 4 mg Q6H PRN IVP 10/01/16 00:30 10/02/16 09:50 (Reglan Inj) 5 mg Q6H PRN IV PUSH 10/01/16 00:30 (Tylenol) 650 mg Q6H PRN PO 10/01/16 00:30 (Percocet 5-325 Mg) 1 tab Q6H PRN PO 10/01/16 00:30 (Percocet 10-325 Mg) 1 tab Q6H PRN PO 10/01/16 00:30 10/02/16 09:49 (Morphine Inj) 4 mg Q3H PRN IV 10/01/16 00:30 Naloxone HCl 0.4 mg 0.4 mg UNSCH PRN IV 10/01/16 00:30 Ciprofloxacin/ Dextrose 200 ml @ 200 mls/hr Q12H IV 10/01/16 11:00 10/02/16 09:51 Metronidazole 100 ml @ 100 mls/hr Q6H IV 10/01/16 06:00 10/02/16 06:50 (NS 250 ml Inj) 250 ml @ 15 mls/hr ONCE ONCE IV 10/02/16 08:00 10/03/16 00:39 A/P Assessment and Plan 1. Large Rectal Cancer awaiting for Biopsy report consult publishing specialist. Radiation Oncology 2. Microcytic Anemia secondary to #1. Discussed with patient and his Ex and his Son in the room. //Prophylaxis. SCDs. AC as per surgical service Discharge Planning Once cleared by Specialists. Nagi Isabel MD Oct 02, 2016 10:02
[2016-10-02] MEDS ORDERED: NORMOSOL R INJ 1,000 ML IV ONE (12:00)
[2016-10-02] MEDS ORDERED: PROPOFOL 200 MG/20 ML AMP IV ONE (12:00)
[2016-10-02] MEDS ORDERED: ONDANSETRON HCL 4 MG/2 ML VIAL IV PUSH ONE (12:00)
[2016-10-02] MEDS ORDERED: NEOSTIGMINE 3 MG/3 ML SYR IV ONE (12:00)
[2016-10-02] MEDS ORDERED: ACETAMINOPHEN 1000 MG/100 ML VIAL IV ONE (16:40)
[2016-10-02] MEDS ORDERED: DEXAMETHASONE SOD PHOS 4 MG/ML VIAL ONE (16:40)
[2016-10-02] MEDS ORDERED: MIDAZOLAM HCL 2 MG/2 ML VIAL ONE (16:40)
[2016-10-02] MEDS ORDERED: FAMOTIDINE 20 MG/2 ML VIAL ONE (16:40)
[2016-10-02] MEDS ORDERED: ENALAPRILAT 2.5 MG/2 ML VIAL IV PRN (18:15)
[2016-10-02] MEDS ORDERED: POTASSIUM CHLOR 20 MEQ PREMIX 100 ML IV PRN (18:15)
[2016-10-02] MEDS ORDERED: POTASSIUM CHLOR 40 MEQ PREMIX 100 ML IV PRN (18:15)
[2016-10-02] MEDS ORDERED: ACETAMINOPHEN 325 MG TAB PO PRN (18:15)
[2016-10-02] MEDS ORDERED: ACETAMINOPHEN/HYDROcodone 325 MG/5 MG TAB PO PRN (18:15)
[2016-10-02] MEDS ORDERED: Post-op Orders (for Pharmacy) MISC XX ONE (18:15)
[2016-10-02] MEDS ORDERED: SODIUM CHLORIDE 0.9% FLUSH 5 ML FLUSH IVF PRN (18:15)
[2016-10-02] MEDS ORDERED: ONDANSETRON HCL 4 MG/2 ML VIAL IV PRN (18:15)
[2016-10-02] MEDS ORDERED: ENALAPRILAT 1.25 MG/ML VIAL IV PRN (18:15)
[2016-10-02] MEDS ORDERED: KETOROLAC TROMETHAMINE 30 MG/ML (IVP) VIAL IVP PRN (18:15)
[2016-10-02] MEDS ORDERED: BENZOCAINE 6 MG/MENTHOL 10 MG LOZENGE BUCCAL PRN (18:15)
[2016-10-02] MEDS ORDERED: NALOXONE HCL 0.4 MG/ML AMP IV PRN (18:15)
--- NOTE | 2016-10-02 18:21 | HHI.PR ---
Immediate Post Op Note Procedure Date: Oct 02, 2016 Pre Op Diagnosis: Rectal cancer Post Op Diagnosis: same Surgeon: Shan Michaud Car Rental Agent(s): none Procedure: Lap assisted sigmoid colostomy Findings: chronically dilated rectosigmoid colon, liver visibly normal loop sigmoid colostomy Complications: none Specimen(s) removed: none Estimated blood loss: min Anesthesia: General Drains: None IVF, PRBC Patient to: PACU Patient Condition: Good Shan Michaud MD Oct 02, 2016 18:21
[2016-10-02] MEDS ORDERED: fentaNYL CITRATE 250 MCG/5 ML AMP ONE (18:24)
[2016-10-02] MEDS ORDERED: *morphine SULFATE 8 MG/ML PERIprocedure ONLY ONE ×2 (18:26→18:57)
--- NOTE | 2016-10-02 18:27 | MB ---
cc: BEV SMITH,JJ INGRAM MD, MD DATE OF CONSULTATION 10/02/16 DATE OF 1965 HISTORY OF PRESENT ILLNESS Thank you for asking me to see this patient in consultation. Unfortunately, at this time, 5:35 p.m. on Wednesday, he was in the operating room my understanding undergoing a temporary colostomy procedure. However, I have reviewed his records in detail including his imaging and I will see the patient after he has recovered, but I can give an opinion at this time. BRIEF HISTORY This gentleman is 51. His history dates back to late last year when he developed diarrhea episodically with constipation and associated with a significant weight loss of 70-80 pounds. He also admitted to abdominal cramps. He was seen in the emergency room with fevers of 102. CT scan of the abdomen and pelvis showed a markedly significant abnormality in the anorectal region. There was also a questionable perirectal abscess. As well, his admission studies indicated a hemoglobin of 7.8 suggesting chronic bleeding or anemia. His CEA was 11.8. The remainder of his blood work was within normal limits. Examination has revealed what appears to be a rectal cancer. He has had a biopsy performed, although that pathology is still pending. Nevertheless, it is assumed that he does have an adenocarcinoma of his rectum. PAST MEDICAL AND SURGICAL HISTORY Previous history of lithotripsy and back surgery in the L5-S1 region. FAMILY HISTORY AND SOCIAL HISTORY His father had pancreatic cancer, dying at age 77. Mother with congestive heart failure and there appears to be no other malignancy in the family. This gentleman is . He did smoke but quit approximately 15 years ago. Imaging including a CT scan of the chest revealed no evidence of acute intrathoracic disease and no evidence of thoracic metastases. A CT scan of the abdomen and pelvis revealed a markedly abnormal anorectal region with mural thickening of the rectum extending cephalad into the distal sigmoid colon. The rectal wall was thickened up to 2.4 cm and there was questionable perirectal abscess. There was associated severe constipation. If the biopsy does confirm an adenocarcinoma of the rectum to which there appears to be little doubt, then this gentleman would be best treated with a combination of radiation treatment and chemotherapy with consideration that surgery follow. I have discussed this very briefly earlier today with Dr. Smith and he is in agreement with that approach. This gentleman being in the middle o having a colostomy will no longer be in significant distress, but because of the amount of disease I believe we should attempt to initiate treatment as soon as possible. I would anticipate being in a position to simulate this gentleman on Wednesday, particularly if he is still an inpatient. That would put us in a position to start his treatment either very late in the week or at the beginning of the following week. At this gentleman will have had an anesthetic, we will not be able to see him this evening; but we will have the opportunity to review this in detail with him and further dictation will be made at that time. MD LORETA Sherman/ /5:38 PM /6:06 PM
[2016-10-02] MEDS ORDERED: DO NOT ADM ANY ANTICOAGULANT DRUGS PRN (18:45)
[2016-10-02] MEDS: D5-NS + KCL 20 MEQ INJ 1,000 ML IV SCH (18:48)
[2016-10-02] MEDS: MORPHINE SULFATE 30 MG/30 ML PCA IV SCH (18:49)
[2016-10-02] MEDS: METOCLOPRAMIDE HCL 10 MG/2 ML VIAL IVS SCH (20:49)
[2016-10-02] MEDS: SODIUM CHLORIDE 0.9% FLUSH 5 ML FLUSH IVF SCH (20:49)
[2016-10-02] MEDS: PCA - TOTAL MG MORPHINE DELIVERED PER SHIFT SCH (22:00)
[2016-10-03] VITALS (8 sets, daily range): BP systolic 118–138; BP diastolic 67–81; PULSE 76–114; RESP 18–22; TEMP 96–99.6; O2SAT 96–100
[2016-10-03] MEDS: CIPROFLOXACIN 400 MG PREMIX 200 ML IV SCH ×3 (00:39→21:03)
[2016-10-03] MEDS: metroNIDAZOLE 500 MG INJ 100 ML IV SCH ×2 (04:57→11:35)
[2016-10-03] MEDS: D5-NS + KCL 20 MEQ INJ 1,000 ML IV SCH ×3 (04:57→23:12)
[2016-10-03] MEDS: PCA - TOTAL MG MORPHINE DELIVERED PER SHIFT SCH ×3 (05:54→21:06)
[2016-10-03 06:04] LABS: AUTOMATED NEUTROPHIL # 10.4 TH/MM3 (1.8-7.7); BASOPHIL % 0.1 % (0.0-2.0); HEMATOCRIT 31.1 % (39.0-51.0); LYMPH % 5.8 % (9.0-44.0); LYMPHOCYTE # 0.7 TH/MM3 (1.0-4.8); MEAN CELL VOLUME 70.5 FL (80.0-100.0); MEAN CORPUSCULAR HEMOGLOBIN 22.1 PG (27.0-34.0); MEAN CORPUSCULAR HGB CONC 31.3 % (32.0-36.0); MONO % 5.3 % (0.0-8.0); NEUT % 88.8 % (16.0-70.0); PLATELET COUNT 543 TH/MM3 (150-450); RED BLOOD COUNT 4.41 MIL/MM3 (4.50-5.90); RED CELL DISTRIBUTION WIDTH 18.9 % (11.6-17.2); WHITE BLOOD COUNT 11.8 TH/MM3 (4.0-11.0)
[2016-10-03 06:26] LABS: HEMO FLAGS AUTO DIFF
[2016-10-03 06:29] LABS: BICARBONATE 27.2 MEQ/L (21.0-32.0); POTASSIUM 5.1 MEQ/L (3.5-5.1)
[2016-10-03] MEDS: PANTOPRAZOLE SODIUM 40 MG VIAL IVP SCH (07:41)
[2016-10-03] MEDS: PANTOPRAZOLE SOD 40 MG DELAYED RELEASE TAB PO SCH (07:44)
[2016-10-03] MEDS: METOCLOPRAMIDE HCL 10 MG/2 ML VIAL IVS SCH ×2 (07:45→21:00)
[2016-10-03] MEDS: SODIUM CHLORIDE 0.9% FLUSH 5 ML FLUSH IVF SCH ×2 (07:52→21:00)
[2016-10-03 08:07] LABS: BANDS 7 % (0-6); METAMYELOCYTES 1 % (0-1); NEUTROPHIL # MANUAL DIFF 11.1 TH/MM3 (1.8-7.7); POLYS (SEG NEUTROPHILS) 86 % (16-70); WBC DIFF SAMPLE 100
[2016-10-03 08:08] LABS: PLATELET ESTIMATE SMEAR HIGH (NORMAL); PLATELET MORPHOLOGY NORMAL (NORMAL); SCAN/DIFF FINAL DIFF MANUAL
--- NOTE | 2016-10-03 10:12 | HHI.PR ---
Subjective Remarks No N or V. Not much pain. No BMs. Pt seen by Oncology and Radiation Oncology and can go home when stable and arrangements can be made. Objective Vital Signs Date Time Temp Pulse Resp B/P Pulse Ox O2 Delivery O2 Flow Rate FiO2 10/03/16 08:00 97.3 85 18 123/67 99 10/03/16 05:54 18 10/03/16 05:54 18 10/03/16 04:00 96.8 81 21 138/81 100 10/03/16 00:00 96.0 76 21 123/73 100 10/02/16 22:00 18 10/02/16 20:42 18 10/02/16 20:00 97.6 104 20 134/88 99 10/02/16 19:05 98.0 91 16 140/80 100 Nasal Cannula 3 10/02/16 19:00 91 16 143/88 100 Nasal Cannula 3 10/02/16 18:49 15 10/02/16 18:45 92 15 142/88 100 Nasal Cannula 3 10/02/16 18:30 93 15 144/94 100 Nasal Cannula 3 10/02/16 18:12 97.8 61 15 141/90 97 Nasal Cannula 3 10/02/16 17:53 97 21 10/02/16 13:52 98.9 97 18 121/73 97 10/02/16 13:20 98.9 104 20 130/64 96 10/02/16 12:00 98.9 104 20 130/64 96 I/O 10/02/16 10/02/16 10/02/16 10/03/16 10/03/16 10/03/16 07:00 15:00 23:00 07:00 15:00 23:00 Intake Total 1251 ml 0 ml 1623 ml 1229 ml Output Total 545 ml 950 ml Balance 1251 ml 0 ml 1078 ml 279 ml Intake Oral 240 ml 0 ml 240 ml 240 ml IV Total 1011 ml 483 ml 989 ml Other 900 ml Output Urine Total 500 ml 950 ml Stool Total 20 ml Estimated Blood Loss 25 ml # Voids 2 2 # Bowel Movements 0 0 0 0 Result Diagram: 10/03/16 0455 10/03/16 0455 Objective Remarks Abd: soft,flat,large edematous loop colostomy Assessment and Plan Assessment and Plan Stable POD#1 Advance diet and arrangements for D/C. Miquel White MD Oct 03, 2016 10:12
--- NOTE | 2016-10-03 13:43 | MB ---
cc: BILLY REHMAN M.D., RONALD J. M.D. WEISS, RICHARD C. M.D. DATE OF CONSULTATION: 10/03/2016 DATE OF : 1965 ADDENDUM This gentleman's chart was reviewed yesterday. Unfortunately he was in the operating room. In brief, he was admitted to the hospital and found to have a rectal mass. A biopsy has been performed and pathology is still pending. However, it is anticipated this is an adenocarcinoma. His CEA was 11.8. Because of the risk of obstruction, he had a temporary colostomy performed yesterday under Dr. Rehman's care. BRIEF EXAM Reveals an alert, oriented gentleman. He was up walking in the hallways when I came. He was afebrile with a pulse of 85 and regular, respiratory rate of 18 and a blood pressure 123/67, his pulse oximetry was 99% on room air. There is no jaundice. His conjunctive and eyelids were normal. Palpation of his head and neck revealed no adenopathy. His lung mayer were clear without effusions. Heart sounds were normal without murmurs, rubs or bruits. There are no abdominal masses or tenderness although he does have a colostomy in place. There is no axillary adenopathy. Rectal was not performed today. There is no ankle edema. Power, tone and gait were normal. REVIEW OF DATA: I reviewed with this gentleman the findings on the CT of the chest, abdomen and pelvis. CT chest revealed no evidence of metastases and the principle findings on the CT of the abdomen and pelvis were in the pelvis with a markedly abnormal anorectal region with mural thickening of the rectum extending cephalad into the distal sigmoid colon. The rectal wall was thickened up to 2.4 cm and there is questionable 3 cm perirectal abscess. There was associated severe constipation. There is no liver metastases and no pelvic or periaortic lymphadenopathy. I have told this gentleman that the pathology confirms, as we expect, that this is a rectal cancer that we will be recommending preoperative radiation treatment and chemotherapy. I have gone onto describe radiation treatment for him. I have discussed how radiation is delivered as well as the potential acute side effects including perianal irritation much like a sunburn which can be very irritating. We would anticipate he will have some symptoms of diarrhea, however, with a colostomy this should not be a significant problem for him. He will also experience some symptoms of fatigue. I told this gentleman that I would like to simulate him on Wednesday and I have coordinated this with our staff. If he is still in the hospital, we will, of course, bring him down for simulation. If he is discharged, I have given him my card and asked him to call in early so that we can let him know the details. This gentleman indicated understanding and willingness to proceed. We will proceed as indicated on Wednesday unless there are unexpected findings. Although I do not expect this to be an anal cancer, if this did prove to be an anal cancer we would still be recommending combination of radiation treatment chemotherapy, although the treatment course would be slightly different and we would review that with him at that time. MD LORETA Sherman/AMBER /1:02 PM /1:14 PM
--- NOTE | 2016-10-03 14:38 | HHI.PR ---
Subjective Remarks This is a pleasant 51 y/o male with history of Nephrolithiasis, back surgery 30 years ago, came to ER with abdominal pain Rectal pain, fever, was admitted with diagnosis of Sepsis, started on Cipro and Flagyl, status post consult by Colon and rectal it specialist, now status post Sigmoidoscopy, found Large Rectal Cancer, status post Biopsy. by Doctor Seen in his bedroom in the presence of his Ex and his Son and he states with his family that he is very confident that with treatment he will do better, no Nausea, vomit or diarrhea stable. he will need Dietitian consult after procedures performed. 10/03 With Diagnosis of Rectal Cancer he had Laparoscopic assisted Sigmoid Colostomy done 10/02/16 by Doctor Shan Michaud Discussed with him and two children in the room, Radiation property management specialist following, discussed with nurse Miss Jarrell no new issues, not yet working Colostomy. Objective Vital Signs Date Time Temp Pulse Resp B/P Pulse Ox O2 Delivery O2 Flow Rate FiO2 10/03/16 11:01 96 10/03/16 08:00 97.3 85 18 123/67 99 10/03/16 05:54 18 10/03/16 05:54 18 10/03/16 04:00 96.8 81 21 138/81 100 10/03/16 00:00 96.0 76 21 123/73 100 10/02/16 22:00 18 10/02/16 20:42 18 10/02/16 20:00 97.6 104 20 134/88 99 10/02/16 19:05 98.0 91 16 140/80 100 Nasal Cannula 3 10/02/16 19:00 91 16 143/88 100 Nasal Cannula 3 10/02/16 18:49 15 10/02/16 18:45 92 15 142/88 100 Nasal Cannula 3 10/02/16 18:30 93 15 144/94 100 Nasal Cannula 3 10/02/16 18:12 97.8 61 15 141/90 97 Nasal Cannula 3 10/02/16 17:53 97 21 I/O 10/02/16 10/02/16 10/02/16 10/03/16 10/03/16 10/03/16 07:00 15:00 23:00 07:00 15:00 23:00 Intake Total 1251 ml 0 ml 1623 ml 1229 ml 680 ml Output Total 545 ml 950 ml Balance 1251 ml 0 ml 1078 ml 279 ml 680 ml Intake Oral 240 ml 0 ml 240 ml 240 ml IV Total 1011 ml 483 ml 989 ml 680 ml Other 900 ml Output Urine Total 500 ml 950 ml Stool Total 20 ml Estimated Blood Loss 25 ml # Voids 2 2 # Bowel Movements 0 0 0 0 Result Diagram: 10/03/16 0455 10/03/16 0455 Imaging Last Impressions Chest CT 10/02/16 0600 Signed Impressions: Service Date/Time: Sunday, October 02, 2016 08:01 - CONCLUSION: 1. No evidence of acute thoracic abnormality. No masses are identified. No evidence of metastatic disease. Buck Quiroz MD Abdomen/Pelvis CT [id number]/30/[id number] Signed Impressions: Service Date/Time: Friday, September 30, 2016 22:49 - CONCLUSION: 1. Markedly abnormal anorectal region with mural thickening of the rectum extending cephalad into the distal sigmoid colon. Rectal wall is thickened up to 2.4 cm and there is a questionable 3 cm perirectal abscess. Cannot exclude neoplasm. There is associated severe constipation. Jasiel Cruz MD Procedures With Diagnosis of Rectal Cancer he had Laparoscopic assisted Sigmoid Colostomy done 10/02/16 by Doctor Shan Michaud Other Results Laboratory Tests Test 09/30/16 10/01/16 10/02/16 10/02/16 20:55 06:36 04:32 10:30 Eosinophils % 1 % Basophils % 1 % Myelocytes 1 % Atypical Lymphocytes % Toxic Granulation 1+ Prothrombin Time 13.6 SEC Prothromb Time International 1.2 RATIO Ratio Activated Partial 29.9 SEC Thromboplast Time Urine Color YELLOW Urine Turbidity CLEAR Urine pH 5.0 Urine Specific [place] 1.015 Urine Protein NEG mg/dL Urine Glucose (UA) NEG mg/dL Urine Ketones NEG mg/dL Urine Occult Blood NEG Urine Nitrite NEG Urine Bilirubin NEG Urine Urobilinogen LESS THAN 2.0 MG/DL Urine Leukocyte Esterase NEG Urine WBC LESS THAN 1 /hpf Urine Mucus FEW /lpf Microscopic Urinalysis Comment CULT NOT INDICATED Stool C. difficile Toxin (PCR) NEGATIVE Stl C. difficile Toxin PRESUMPTIVE Epiderm 027 NEGATIVE Lactic Acid Level 1.8 mmol/L Total Bilirubin 0.5 MG/DL Aspartate Amino Transf 10 U/L (AST/SGOT) Alanine Aminotransferase 17 U/L (ALT/SGPT) Alkaline Phosphatase 88 U/L Total Protein 7.5 GM/DL Albumin 2.9 GM/DL Lipase 64 U/L Prostate Specific Antigen 0.46 NG/ML Ovalocytes 1+ Phosphorus Level 3.2 MG/DL Magnesium Level 2.4 MG/DL Iron Level 10 MCG/DL Total Iron Binding Capacity 167 MCG/DL Percent Iron Saturation 6.0 % Ferritin 290 NG/ML Carcinoembryonic Antigen 11.8 NG/ML Antibody Screen NEGATIVE Crossmatch Leukocyte-Reduced Red Blood Cells Blood Bank Comment Test 10/02/16 10/03/16 11:14 04:55 Blood Type O POSITIVE White Blood Count 11.8 TH/MM3 Red Blood Count 4.41 MIL/MM3 Hemoglobin 9.7 GM/DL Hematocrit 31.1 % Mean Corpuscular Volume 70.5 FL Mean Corpuscular Hemoglobin 22.1 PG Mean Corpuscular Hemoglobin 31.3 % Concent Red Cell Distribution Width 18.9 % Platelet Count 543 TH/MM3 Mean Platelet Volume 6.8 FL Neutrophils (%) (Auto) 88.8 % Lymphocytes (%) (Auto) 5.8 % Monocytes (%) (Auto) 5.3 % Eosinophils (%) (Auto) 0.0 % Basophils (%) (Auto) 0.1 % Neutrophils # (Auto) 10.4 TH/MM3 Lymphocytes # (Auto) 0.7 TH/MM3 Monocytes # (Auto) 0.6 TH/MM3 Eosinophils # (Auto) 0.0 TH/MM3 Basophils # (Auto) 0.0 TH/MM3 CBC Comment AUTO DIFF Differential Total Cells 100 Counted Neutrophils % (Manual) 86 % Band Neutrophils % 7 % Lymphocytes % 3 % Monocytes % 3 % Neutrophils # (Manual) 11.1 TH/MM3 Metamyelocytes 1 % Differential Comment FINAL DIFF MANUAL Platelet Estimate HIGH Platelet Morphology Comment NORMAL Sodium Level 139 MEQ/L Potassium Level 5.1 MEQ/L Chloride Level 104 MEQ/L Carbon Dioxide Level 27.2 MEQ/L Anion Gap 8 MEQ/L Blood Urea Nitrogen 6 MG/DL Creatinine 0.75 MG/DL Estimat Glomerular Filtration 109 ML/MIN Rate Random Glucose 158 MG/DL Calcium Level 8.7 MG/DL Objective Remarks GENERAL: No acute distress. SKIN: No rashes, ecchymoses or lesions. Cool and dry. HEAD: Atraumatic. Normocephalic. No temporal or scalp tenderness. EYES: Pupils equal round and reactive. Extraocular motions intact. ENT: No lymphadenopathy. NECK: Trachea midline. No JVD or lymphadenopathy. CARDIOVASCULAR: Regular rate and rhythm without murmurs, gallops, or rubs. RESPIRATORY: Clear to auscultation. Breath sounds equal bilaterally. No wheezes , rales, or rhonchi. GASTROINTESTINAL: Abdomen soft, nondistended. Colostomy in place. MUSCULOSKELETAL: Extremities without clubbing, cyanosis, or edema. NEUROLOGICAL: Awake and alert. No focal deficits. Medications and IVs Current Medications Medications (Trade) Dose Ordered Sig/Kirt Route Start Time Stop Time Status Last Admin Ciprofloxacin/ Dextrose 200 ml @ 200 mls/hr Q12H IV 10/01/16 11:00 10/03/16 10:29 (D5-NS + KCl 20 Meq Inj) 1,000 ml @ 75 mls/hr [id number] IV 10/02/16 18:10 10/03/16 10:29 (NS Flush) 2 ml UNSCH PRN IVF 10/02/16 18:15 (NS Flush) 2 ml BID IVF 10/02/16 21:00 ([place] 5-325 Mg) 1 tab Q4H PRN PO 10/02/16 18:15 ([place] 5-325 Mg) 2 tab Q4H PRN PO 10/02/16 18:15 (Toradol Inj) 30 mg Q6H PRN IVP 10/02/16 18:15 10/05/16 18:14 10/02/16 18:42 (Tylenol) 650 mg Q4H PRN PO 10/02/16 18:15 (Protonix Inj) 40 mg DAILY IVP 10/03/16 09:00 (Protonix) 40 mg DAILY PO 10/03/16 09:00 10/03/16 07:44 (Reglan Inj) 10 mg Q12HR IVS 10/02/16 21:00 10/03/16 07:45 (Zofran Inj) 4 mg Q6H PRN IV 10/02/16 18:15 (Vasotec Inj) 1.25 mg Q4H PRN IV 10/02/16 18:15 (Vasotec Inj) 2.5 mg Q6H PRN IV 10/02/16 18:15 Benzocaine/ Menthol 1 lozenge 1 lozenge UNSCH PRN BUCCAL 10/02/16 18:15 Potassium Chloride 100 ml @ 50 mls/hr UNSCH PRN IV 10/02/16 18:15 (KCl 40 Meq Premix Inj) 100 ml @ 25 mls/hr UNSCH PRN IV 10/02/16 18:15 (Narcan Inj) 0.4 mg UNSCH PRN IV 10/02/16 18:15 (Morphine 1 Mg/ ml SCANNER SUPERVISOR) 30 mg UNSCH IV 10/02/16 18:15 10/02/16 18:49 SCANNER SUPERVISOR Dosage Infused (Pha) 1 Q8HR .XX 10/02/16 22:00 10/03/16 12:14 Miscellaneous Information ALL NURSING DEPARTME... UNSCH PRN .XX 10/02/16 18:45 10/03/16 18:44 A/P Assessment and Plan 1. Large Rectal Cancer awaiting for Biopsy report consult license and permit specialist. Radiation Oncology status post Laparoscopic Colostomy, stable awaiting final by Colorectal Surgery and Radiation license and permit specialist. questionable rectal abscess on Ciprofloxacin. 2. Microcytic Anemia secondary to #1. stable. Discussed with patient and his two children in the room. Prophylaxis. SCDs. the patient has good activity. Discharge Planning Once cleared by Specialists. Nagi Isabel MD Oct 03, 2016 14:38 Once cleared by Specialists. Nagi Isabel MD Oct 03, 2016 14:38
[2016-10-04] VITALS (8 sets, daily range): BP systolic 130–148; BP diastolic 75–90; PULSE 89–110; RESP 16–20; TEMP 98.1–98.8; O2SAT 96–98
[2016-10-04] MEDS: D5-NS + KCL 20 MEQ INJ 1,000 ML IV SCH (02:10)
[2016-10-04 05:20] LABS: AUTOMATED NEUTROPHIL # 7.3 TH/MM3 (1.8-7.7); BASOPHIL # 0.1 TH/MM3 (0-0.2); BASOPHIL % 0.6 % (0.0-2.0); EOSINOPHIL % 0.5 % (0.0-4.0); HEMATOCRIT 30.5 % (39.0-51.0); LYMPH % 17.2 % (9.0-44.0); LYMPHOCYTE # 1.7 TH/MM3 (1.0-4.8); MEAN CELL VOLUME 71.7 FL (80.0-100.0); MEAN CORPUSCULAR HGB CONC 30.7 % (32.0-36.0); MONO % 8.9 % (0.0-8.0); NEUT % 72.8 % (16.0-70.0); PLATELET COUNT 541 TH/MM3 (150-450); RED BLOOD COUNT 4.26 MIL/MM3 (4.50-5.90); RED CELL DISTRIBUTION WIDTH 19.1 % (11.6-17.2); WHITE BLOOD COUNT 10.1 TH/MM3 (4.0-11.0)
[2016-10-04 05:27] LABS: HEMO FLAGS AUTO DIFF
[2016-10-04 05:53] LABS: SCAN/DIFF AUTO DIFF CONFIRMED
[2016-10-04] MEDS: PCA - TOTAL MG MORPHINE DELIVERED PER SHIFT SCH ×3 (06:00→22:00)
[2016-10-04 06:25] LABS: BICARBONATE 30.2 MEQ/L (21.0-32.0); POTASSIUM 4.1 MEQ/L (3.5-5.1)
[2016-10-04] MEDS: SODIUM CHLORIDE 0.9% FLUSH 5 ML FLUSH IVF SCH ×2 (07:03→20:06)
[2016-10-04] MEDS: PANTOPRAZOLE SODIUM 40 MG VIAL IVP SCH (07:03)
[2016-10-04] MEDS: METOCLOPRAMIDE HCL 10 MG/2 ML VIAL IVS SCH ×2 (07:40→20:06)
[2016-10-04] MEDS: PANTOPRAZOLE SOD 40 MG DELAYED RELEASE TAB PO SCH (07:40)
--- NOTE | 2016-10-04 09:18 | HHI.PR ---
Subjective Remarks This is a pleasant 51 y/o male with history of Nephrolithiasis, back surgery 30 years ago, came to ER with abdominal pain Rectal pain, fever, was admitted with diagnosis of Sepsis, started on Cipro and Flagyl, status post consult by Colon and rectal rehabilitation construction specialist, now status post Sigmoidoscopy, found Large Rectal Cancer, status post Biopsy. by Doctor Seen in his bedroom in the presence of his Ex and his Son and he states with his family that he is very confident that with treatment he will do better, no Nausea, vomit or diarrhea stable. he will need Dietitian consult after procedures performed. 10/03 With Diagnosis of Rectal Cancer he had Laparoscopic assisted Sigmoid Colostomy done 10/02/16 by Doctor Shan Michaud Discussed with him and two children in the room, Radiation tax specialist following, discussed with nurse Miss Jarrell no new issues, not yet working Colostomy. 10/04 Seen in his bedroom and discussed with nurse Miss Jarrell appreciated, no nausea, vomit or diarrhea, not yet Colostomy working, no complaint. seen with his Children in the room. Objective Vital Signs Date Time Temp Pulse Resp B/P Pulse Ox O2 Delivery O2 Flow Rate FiO2 10/04/16 07:15 96 10/04/16 06:00 18 10/04/16 04:00 98.1 89 20 133/82 97 10/04/16 00:00 98.5 92 20 130/75 98 10/03/16 21:06 18 10/03/16 20:00 99.6 114 22 118/69 97 10/03/16 16:00 98.6 102 20 137/78 97 10/03/16 12:00 98.5 110 20 132/70 96 10/03/16 11:01 96 I/O 10/03/16 10/03/16 10/03/16 10/04/16 10/04/16 10/04/16 07:00 15:00 23:00 07:00 15:00 23:00 Intake Total 1229 ml 1480 ml 888 ml 1068 ml Output Total 950 ml 650 ml 625 ml 850 ml Balance 279 ml 830 ml 263 ml 218 ml Intake Oral 240 ml 800 ml 240 ml 320 ml IV Total 989 ml 680 ml 648 ml 748 ml Output Urine Total 950 ml 650 ml 500 ml 850 ml Stool Total 0 ml 125 ml 0 ml # Bowel Movements 0 Result Diagram: 4/2/17 0434 10/04/16 0434 Imaging Last Impressions Chest CT 10/02/16 0600 Signed Impressions: Service Date/Time: Sunday, October 02, 2016 08:01 - CONCLUSION: 1. No evidence of acute thoracic abnormality. No masses are identified. No evidence of metastatic disease. Buck Quiroz MD Abdomen/Pelvis CT [id number]/30/[id number] Signed Impressions: Service Date/Time: Friday, September 30, 2016 22:49 - CONCLUSION: 1. Markedly abnormal anorectal region with mural thickening of the rectum extending cephalad into the distal sigmoid colon. Rectal wall is thickened up to 2.4 cm and there is a questionable 3 cm perirectal abscess. Cannot exclude neoplasm. There is associated severe constipation. Jasiel Cruz MD Procedures With Diagnosis of Rectal Cancer he had Laparoscopic assisted Sigmoid Colostomy done 10/02/16 by Doctor Shan Michaud Other Results Laboratory Tests Test 09/30/16 10/01/16 10/02/16 10/02/16 20:55 06:36 04:32 10:30 Eosinophils % 1 % Basophils % 1 % Myelocytes 1 % Atypical Lymphocytes % Toxic Granulation 1+ Prothrombin Time 13.6 SEC Prothromb Time International 1.2 RATIO Ratio Activated Partial 29.9 SEC Thromboplast Time Urine Color YELLOW Urine Turbidity CLEAR Urine pH 5.0 Urine Specific [place] 1.015 Urine Protein NEG mg/dL Urine Glucose (UA) NEG mg/dL Urine Ketones NEG mg/dL Urine Occult Blood NEG Urine Nitrite NEG Urine Bilirubin NEG Urine Urobilinogen LESS THAN 2.0 MG/DL Urine Leukocyte Esterase NEG Urine WBC LESS THAN 1 /hpf Urine Mucus FEW /lpf Microscopic Urinalysis Comment CULT NOT INDICATED Stool C. difficile Toxin (PCR) NEGATIVE Stl C. difficile Toxin PRESUMPTIVE Epiderm 027 NEGATIVE Lactic Acid Level 1.8 mmol/L Total Bilirubin 0.5 MG/DL Aspartate Amino Transf 10 U/L (AST/SGOT) Alanine Aminotransferase 17 U/L (ALT/SGPT) Alkaline Phosphatase 88 U/L Total Protein 7.5 GM/DL Albumin 2.9 GM/DL Lipase 64 U/L Prostate Specific Antigen 0.46 NG/ML Ovalocytes 1+ Phosphorus Level 3.2 MG/DL Magnesium Level 2.4 MG/DL Iron Level 10 MCG/DL Total Iron Binding Capacity 167 MCG/DL Percent Iron Saturation 6.0 % Ferritin 290 NG/ML Carcinoembryonic Antigen 11.8 NG/ML Antibody Screen NEGATIVE Crossmatch Leukocyte-Reduced Red Blood Cells Blood Bank Comment Test 10/02/16 10/03/16 10/04/16 11:14 04:55 04:34 Blood Type O POSITIVE Differential Total Cells 100 Counted Neutrophils % (Manual) 86 % Band Neutrophils % 7 % Lymphocytes % 3 % Monocytes % 3 % Neutrophils # (Manual) 11.1 TH/MM3 Metamyelocytes 1 % Platelet Estimate HIGH Platelet Morphology Comment NORMAL White Blood Count 10.1 TH/MM3 Red Blood Count 4.26 MIL/MM3 Hemoglobin 9.4 GM/DL Hematocrit 30.5 % Mean Corpuscular Volume 71.7 FL Mean Corpuscular Hemoglobin 22.0 PG Mean Corpuscular Hemoglobin 30.7 % Concent Red Cell Distribution Width 19.1 % Platelet Count 541 TH/MM3 Mean Platelet Volume 6.6 FL Neutrophils (%) (Auto) 72.8 % Lymphocytes (%) (Auto) 17.2 % Monocytes (%) (Auto) 8.9 % Eosinophils (%) (Auto) 0.5 % Basophils (%) (Auto) 0.6 % Neutrophils # (Auto) 7.3 TH/MM3 Lymphocytes # (Auto) 1.7 TH/MM3 Monocytes # (Auto) 0.9 TH/MM3 Eosinophils # (Auto) 0.0 TH/MM3 Basophils # (Auto) 0.1 TH/MM3 CBC Comment AUTO DIFF Differential Comment AUTO DIFF CONFIRMED Sodium Level 141 MEQ/L Potassium Level 4.1 MEQ/L Chloride Level 106 MEQ/L Carbon Dioxide Level 30.2 MEQ/L Anion Gap 5 MEQ/L Blood Urea Nitrogen 5 MG/DL Creatinine 0.87 MG/DL Estimat Glomerular Filtration 92 ML/MIN Rate Random Glucose 105 MG/DL Calcium Level 8.2 MG/DL Objective Remarks GENERAL: No acute distress. SKIN: No rashes, ecchymoses or lesions. Cool and dry. HEAD: Atraumatic. Normocephalic. No temporal or scalp tenderness. EYES: Pupils equal round and reactive. Extraocular motions intact. ENT: No lymphadenopathy. NECK: Trachea midline. No JVD or lymphadenopathy. CARDIOVASCULAR: Regular rate and rhythm without murmurs, gallops, or rubs. RESPIRATORY: Clear to auscultation. Breath sounds equal bilaterally. No wheezes , rales, or rhonchi. GASTROINTESTINAL: Abdomen soft, nondistended. Colostomy in place. MUSCULOSKELETAL: Extremities without clubbing, cyanosis, or edema. NEUROLOGICAL: Awake and alert. No focal deficits. Medications and IVs Current Medications Medications (Trade) Dose Ordered Sig/Kirt Route Start Time Stop Time Status Last Admin Ciprofloxacin/ Dextrose 200 ml @ 200 mls/hr Q12H IV 10/01/16 11:00 10/03/16 21:03 (D5-NS + KCl 20 Meq Inj) 1,000 ml @ 75 mls/hr [id number] IV 10/02/16 18:10 10/03/16 23:12 (NS Flush) 2 ml UNSCH PRN IVF 10/02/16 18:15 (NS Flush) 2 ml BID IVF 10/02/16 21:00 ([place] 5-325 Mg) 1 tab Q4H PRN PO 10/02/16 18:15 ([place] 5-325 Mg) 2 tab Q4H PRN PO 10/02/16 18:15 (Toradol Inj) 30 mg Q6H PRN IVP 10/02/16 18:15 10/05/16 18:14 10/02/16 18:42 (Tylenol) 650 mg Q4H PRN PO 10/02/16 18:15 (Protonix Inj) 40 mg DAILY IVP 10/03/16 09:00 (Protonix) 40 mg DAILY PO 10/03/16 09:00 10/04/16 07:40 (Reglan Inj) 10 mg Q12HR IVS 10/02/16 21:00 10/04/16 07:40 (Zofran Inj) 4 mg Q6H PRN IV 10/02/16 18:15 (Vasotec Inj) 1.25 mg Q4H PRN IV 10/02/16 18:15 (Vasotec Inj) 2.5 mg Q6H PRN IV 10/02/16 18:15 Benzocaine/ Menthol 1 lozenge 1 lozenge UNSCH PRN BUCCAL 10/02/16 18:15 Potassium Chloride 100 ml @ 50 mls/hr UNSCH PRN IV 10/02/16 18:15 (KCl 40 Meq Premix Inj) 100 ml @ 25 mls/hr UNSCH PRN IV 10/02/16 18:15 (Narcan Inj) 0.4 mg UNSCH PRN IV 10/02/16 18:15 (Morphine 1 Mg/ ml QUILLER OPERATOR) 30 mg UNSCH IV 10/02/16 18:15 10/02/16 18:49 QUILLER OPERATOR Dosage Infused (Pha) 1 Q8HR .XX 10/02/16 22:00 10/04/16 06:00 A/P Assessment and Plan 1. Large Rectal Cancer awaiting for Biopsy report consult accounts receivable specialist. Radiation Oncology status post Laparoscopic Colostomy, stable awaiting final by Colorectal Surgery and Radiation accounts receivable specialist. no off antibiotics. as per Colorectal surgery for probable discharge tomorrow after Colostomy teaching and Radiation Stimulation. 2. Microcytic Anemia secondary to #1. stable. Discussed with patient and Children, in the room, also his Sister present. Prophylaxis. SCDs. the patient has good activity. Discharge Planning Expected for tomorrow. Nagi Isabel MD Oct 04, 2016 09:18
--- NOTE | 2016-10-04 09:41 | HHI.PR ---
Subjective Remarks No N or V. Not much pain. No BMs. Pt seen by Oncology and Radiation Oncology and can go home when stable and arrangements can be made. Hasn't had any stomal teaching yet. Doesn't want to go home yet. Radiation simulation tomorrow. Objective Vital Signs Date Time Temp Pulse Resp B/P Pulse Ox O2 Delivery O2 Flow Rate FiO2 10/04/16 07:15 96 10/04/16 06:00 18 10/04/16 04:00 98.1 89 20 133/82 97 10/04/16 00:00 98.5 92 20 130/75 98 10/03/16 21:06 18 10/03/16 20:00 99.6 114 22 118/69 97 10/03/16 16:00 98.6 102 20 137/78 97 10/03/16 12:00 98.5 110 20 132/70 96 10/03/16 11:01 96 I/O 10/03/16 10/03/16 10/03/16 10/04/16 10/04/16 10/04/16 07:00 15:00 23:00 07:00 15:00 23:00 Intake Total 1229 ml 1480 ml 888 ml 1068 ml Output Total 950 ml 650 ml 625 ml 850 ml Balance 279 ml 830 ml 263 ml 218 ml Intake Oral 240 ml 800 ml 240 ml 320 ml IV Total 989 ml 680 ml 648 ml 748 ml Output Urine Total 950 ml 650 ml 500 ml 850 ml Stool Total 0 ml 125 ml 0 ml # Bowel Movements 0 Result Diagram: 10/04/16 0434 10/04/16 0434 Procedures With Diagnosis of Rectal Cancer he had Laparoscopic assisted Sigmoid Colostomy done 10/02/16 by Doctor Shan Michaud Objective Remarks Abd: soft,flat,large edematous loop colostomy. No stool. Assessment and Plan Assessment and Plan Stable POD#2 Regular diet. D/C hill. Possible D/C later tomorrow after colostomy teaching and Radiation simulation. Miquel White MD Oct 04, 2016 09:41
[2016-10-04] MEDS: MORPHINE SULFATE 30 MG/30 ML PCA IV SCH (10:56)
[2016-10-04] MEDS: CIPROFLOXACIN 400 MG PREMIX 200 ML IV SCH ×2 (10:56→23:09)
--- NOTE | 2016-10-04 21:33 | EKG ---
Date Performed: 10/02/2016 Time Performed: 15:23:04 PTAGE: 51 years EKG: SINUS TACHYCARDIA POSSIBLE RIGHT VENTRICULAR CONDUCTION DELAY ABNORMAL RHYTHM ECG PREVIOUS TRACING : 02/03/2010 16.21 DOCTOR: Brigida Szymanski Interpretating Date/Time 10/04/2016 21:30:38
[2016-10-05] VITALS (7 sets, daily range): BP systolic 130–158; BP diastolic 80–91; PULSE 97–114; RESP 16–20; TEMP 97.5–99.7; O2SAT 96–98
[2016-10-05] MEDS: MORPHINE SULFATE 30 MG/30 ML PCA IV SCH (01:26)
[2016-10-05] MEDS: PCA - TOTAL MG MORPHINE DELIVERED PER SHIFT SCH ×2 (05:46→14:41)
[2016-10-05] MEDS: PANTOPRAZOLE SODIUM 40 MG VIAL IVP SCH (09:00)
[2016-10-05] MEDS: SODIUM CHLORIDE 0.9% FLUSH 5 ML FLUSH IVF SCH ×2 (09:00→20:40)
[2016-10-05] MEDS: METOCLOPRAMIDE HCL 10 MG/2 ML VIAL IVS SCH (09:31)
[2016-10-05] MEDS: PANTOPRAZOLE SOD 40 MG DELAYED RELEASE TAB PO SCH (09:31)
[2016-10-05] MEDS: CIPROFLOXACIN 400 MG PREMIX 200 ML IV SCH (11:42)
--- NOTE | 2016-10-05 14:38 | HHI.PR ---
Subjective Remarks This is a pleasant 51 y/o male with history of Nephrolithiasis, back surgery 30 years ago, came to ER with abdominal pain Rectal pain, fever, was admitted with diagnosis of Sepsis, started on Cipro and Flagyl, status post consult by Colon and rectal patient financial services specialist, now status post Sigmoidoscopy, found Large Rectal Cancer, status post Biopsy. by Doctor Seen in his bedroom in the presence of his Ex and his Son and he states with his family that he is very confident that with treatment he will do better, no Nausea, vomit or diarrhea stable. he will need Dietitian consult after procedures performed. 10/03 With Diagnosis of Rectal Cancer he had Laparoscopic assisted Sigmoid Colostomy done 10/02/16 by Doctor Shan Michaud Discussed with him and two children in the room, Radiation older worker specialist following, discussed with nurse Miss Jarrell no new issues, not yet working Colostomy. 10/04 Seen in his bedroom not yet Colostomy working, no complaint. seen with his Children in the room. 10/05 patient stable seen in the presence of relative, not yet ready for discharge, had his Radiation Stimulation, discussed with nurse Miss Shipman she will let me know if is discharged by General Surgery. having ostomy Education Objective Vital Signs Date Time Temp Pulse Resp B/P Pulse Ox O2 Delivery O2 Flow Rate FiO2 10/05/16 12:00 98.8 98 17 131/84 98 10/05/16 08:00 99.0 99 17 148/82 97 10/05/16 05:46 16 10/05/16 05:43 16 10/05/16 04:00 98.3 114 20 143/91 96 10/05/16 01:26 16 10/05/16 00:00 97.5 111 20 158/84 97 10/04/16 22:00 16 10/04/16 22:00 16 10/04/16 20:00 98.8 110 20 140/87 96 10/04/16 16:00 98.6 94 20 140/86 98 I/O 10/04/16 10/04/16 10/04/16 10/05/16 10/05/16 10/05/16 06:59 14:59 22:59 06:59 14:59 22:59 Intake Total 1068 ml 970 ml 320 ml 1225 ml 464 ml Output Total 850 ml 750 ml 550 ml 200 ml Balance 218 ml 220 ml -230 ml 1025 ml 464 ml Intake Oral 320 ml 600 ml 320 ml 240 ml IV Total 748 ml 370 ml 985 ml 464 ml Output Urine Total 850 ml 750 ml 550 ml Stool Total 0 ml 0 ml 200 ml # Voids 0 Result Diagram: 10/04/164 10/04/164 Imaging Last Impressions Chest CT 10/02/16 0600 Signed Impressions: Service Date/Time: Sunday, October 02, 2016 08:01 - CONCLUSION: 1. No evidence of acute thoracic abnormality. No masses are identified. No evidence of metastatic disease. Buck Quiroz MD Abdomen/Pelvis CT 09/30/162036 Signed Impressions: Service Date/Time: Friday, September 30, 2016 22:49 - CONCLUSION: 1. Markedly abnormal anorectal region with mural thickening of the rectum extending cephalad into the distal sigmoid colon. Rectal wall is thickened up to 2.4 cm and there is a questionable 3 cm perirectal abscess. Cannot exclude neoplasm. There is associated severe constipation. Jasiel Cruz MD Procedures With Diagnosis of Rectal Cancer he had Laparoscopic assisted Sigmoid Colostomy done 10/02/16 by Doctor Shan Michaud Other Results Laboratory Tests Test 10/01/16 10/02/16 10/02/16 10/02/16 06:36 04:32 10:30 11:14 Prostate Specific Antigen 0.46 NG/ML Ovalocytes 1+ Phosphorus Level 3.2 MG/DL Magnesium Level 2.4 MG/DL Iron Level 10 MCG/DL Total Iron Binding Capacity 167 MCG/DL Percent Iron Saturation 6.0 % Ferritin 290 NG/ML Carcinoembryonic Antigen 11.8 NG/ML Antibody Screen NEGATIVE Crossmatch Leukocyte-Reduced Red Blood Cells Blood Bank Comment Blood Type O POSITIVE Test 10/03/16 10/04/16 04:55 04:34 Differential Total Cells 100 Counted Neutrophils % (Manual) 86 % Band Neutrophils % 7 % Lymphocytes % 3 % Monocytes % 3 % Neutrophils # (Manual) 11.1 TH/MM3 Metamyelocytes 1 % Platelet Estimate HIGH Platelet Morphology Comment NORMAL White Blood Count 10.1 TH/MM3 Red Blood Count 4.26 MIL/MM3 Hemoglobin 9.4 GM/DL Hematocrit 30.5 % Mean Corpuscular Volume 71.7 FL Mean Corpuscular Hemoglobin 22.0 PG Mean Corpuscular Hemoglobin 30.7 % Concent Red Cell Distribution Width 19.1 % Platelet Count 541 TH/MM3 Mean Platelet Volume 6.6 FL Neutrophils (%) (Auto) 72.8 % Lymphocytes (%) (Auto) 17.2 % Monocytes (%) (Auto) 8.9 % Eosinophils (%) (Auto) 0.5 % Basophils (%) (Auto) 0.6 % Neutrophils # (Auto) 7.3 TH/MM3 Lymphocytes # (Auto) 1.7 TH/MM3 Monocytes # (Auto) 0.9 TH/MM3 Eosinophils # (Auto) 0.0 TH/MM3 Basophils # (Auto) 0.1 TH/MM3 CBC Comment AUTO DIFF Differential Comment AUTO DIFF CONFIRMED Sodium Level 141 MEQ/L Potassium Level 4.1 MEQ/L Chloride Level 106 MEQ/L Carbon Dioxide Level 30.2 MEQ/L Anion Gap 5 MEQ/L Blood Urea Nitrogen 5 MG/DL Creatinine 0.87 MG/DL Estimat Glomerular Filtration 92 ML/MIN Rate Random Glucose 105 MG/DL Calcium Level 8.2 MG/DL Objective Remarks GENERAL: No acute distress. SKIN: No rashes, ecchymoses or lesions. Cool and dry. HEAD: Atraumatic. Normocephalic. No temporal or scalp tenderness. EYES: Pupils equal round and reactive. Extraocular motions intact. ENT: No lymphadenopathy. NECK: Trachea midline. No JVD or lymphadenopathy. CARDIOVASCULAR: Regular rate and rhythm without murmurs, gallops, or rubs. RESPIRATORY: Clear to auscultation. Breath sounds equal bilaterally. No wheezes , rales, or rhonchi. GASTROINTESTINAL: Abdomen soft, nondistended. Colostomy in place. MUSCULOSKELETAL: Extremities without clubbing, cyanosis, or edema. NEUROLOGICAL: Awake and alert. No focal deficits. Medications and IVs Current Medications Medications (Trade) Dose Ordered Sig/Kirt Route Start Time Stop Time Status Last Admin Ciprofloxacin/ Dextrose 200 ml @ 200 mls/hr Q12H IV 10/01/16 11:00 10/05/16 11:42 (D5-NS + KCl 20 Meq Inj) 1,000 ml @ 50 mls/hr Q20H IV 10/02/16 18:10 10/03/16 23:12 (NS Flush) 2 ml UNSCH PRN IVF 10/02/16 18:15 (NS Flush) 2 ml BID IVF 10/02/16 21:00 10/04/16 20:06 ([place] 5-325 Mg) 1 tab Q4H PRN PO 10/02/16 18:15 ([place] 5-325 Mg) 2 tab Q4H PRN PO 10/02/16 18:15 (Toradol Inj) 30 mg Q6H PRN IVP 10/02/16 18:15 10/05/16 18:14 10/02/16 18:42 (Tylenol) 650 mg Q4H PRN PO 10/02/16 18:15 (Protonix Inj) 40 mg DAILY IVP 10/03/16 09:00 (Protonix) 40 mg DAILY PO 10/03/16 09:00 10/05/16 09:31 (Reglan Inj) 10 mg Q12HR IVS 10/02/16 21:00 10/05/16 09:31 (Zofran Inj) 4 mg Q6H PRN IV 10/02/16 18:15 (Vasotec Inj) 1.25 mg Q4H PRN IV 10/02/16 18:15 (Vasotec Inj) 2.5 mg Q6H PRN IV 10/02/16 18:15 Benzocaine/ Menthol 1 lozenge 1 lozenge UNSCH PRN BUCCAL 10/02/16 18:15 Potassium Chloride 100 ml @ 50 mls/hr UNSCH PRN IV 10/02/16 18:15 (KCl 40 Meq Premix Inj) 100 ml @ 25 mls/hr UNSCH PRN IV 10/02/16 18:15 (Narcan Inj) 0.4 mg UNSCH PRN IV 10/02/16 18:15 (Morphine 1 Mg/ ml WO[employer]ET [employer]) 30 mg UNSCH IV 10/02/16 18:15 10/05/16 01:26 WOOD CABINET FINISHER Dosage Infused (Pha) 1 Q8HR .XX 10/02/16 22:00 10/05/16 05:46 A/P Assessment and Plan 1. Large Rectal Cancer awaiting for Biopsy report consult event marketing specialist. Radiation Oncology status post Laparoscopic Colostomy, stable awaiting final by Colorectal Surgery and Radiation event marketing specialist. no off antibiotics. as per Colorectal surgery for probable discharge tomorrow after Colostomy teaching and Radiation Stimulation. 2. Microcytic Anemia secondary to #1. stable. Discussed with patient nurse and relative in the room Prophylaxis. SCDs. the patient has good activity. Discharge Planning Expected later today or in am tomorrow. Nagi Isabel MD Oct 05, 2016 14:37
[2016-10-05] MEDS: D5-NS + KCL 20 MEQ INJ 1,000 ML IV SCH ×2 (14:42→20:41)
[2016-10-05] MEDS ORDERED: METOCLOPRAMIDE HCL 10 MG/2 ML VIAL IVS PRN (19:30)
[2016-10-05] MEDS ORDERED: HYDR-3516 PO (19:35)
[2016-10-05] MEDS: ACETAMINOPHEN/HYDROcodone 325 MG/5 MG TAB PO PRN (20:57)
[2016-10-06] VITALS: BP 133/85; PULSE 89; RESP 17; TEMP 97.9; O2SAT 96
[2016-10-06] MEDS: ACETAMINOPHEN/HYDROcodone 325 MG/5 MG TAB PO PRN (02:13)
[2016-10-06 08:00] VITALS: BP 150/87; PULSE 88; RESP 17; TEMP 98; O2SAT 97
[2016-10-06] MEDS: SODIUM CHLORIDE 0.9% FLUSH 5 ML FLUSH IVF SCH (08:46)
[2016-10-06] MEDS: PANTOPRAZOLE SODIUM 40 MG VIAL IVP SCH (08:46)
[2016-10-06] MEDS: PANTOPRAZOLE SOD 40 MG DELAYED RELEASE TAB PO SCH (08:48)
[2016-10-06 12:00] VITALS: BP 154/82; PULSE 116; RESP 17; TEMP 99.4; O2SAT 94
--- NOTE | 2016-10-06 12:31 | HHI.PR ---
Subjective Remarks This is a pleasant 51 y/o male with history of Nephrolithiasis, back surgery 30 years ago, came to ER with abdominal pain Rectal pain, fever, was admitted with diagnosis of Sepsis, started on Cipro and Flagyl, status post consult by Colon and rectal certified technician specialist, now status post Sigmoidoscopy, found Large Rectal Cancer, status post Biopsy. by Doctor Seen in his bedroom in the presence of his Ex and his Son and he states with his family that he is very confident that with treatment he will do better, no Nausea, vomit or diarrhea stable. he will need Dietitian consult after procedures performed. 10/03 With Diagnosis of Rectal Cancer he had Laparoscopic assisted Sigmoid Colostomy done 10/02/16 by Doctor Shan Michaud Discussed with him and two children in the room, Radiation welding process specialist following, discussed with nurse Miss Jarrell no new issues, not yet working Colostomy. 10/04 Seen in his bedroom not yet Colostomy working, no complaint. seen with his Children in the room. 10/05 patient stable seen in the presence of relative, not yet ready for discharge, had his Radiation Stimulation, discussed with nurse Miss Shipman she will let me know if is discharged by Colon and Rectal Surgery. having ostomy Education 10/06 Stable seen in his bedroom, already recommended by Colon and Rectal Surgery for discharge at this time will follow as outpatient, he has already an appointment to Start Radiation therapy. No nausea, vomit or diarrhea. Objective Vital Signs Date Time Temp Pulse Resp B/P Pulse Ox O2 Delivery O2 Flow Rate FiO2 10/06/16 08:00 98.0 88 17 150/87 97 10/06/16 00:00 97.9 89 17 133/85 96 10/05/16 20:00 99.7 101 17 130/80 96 10/05/16 16:00 99.1 97 18 151/88 96 10/05/16 14:41 18 I/O 10/05/16 10/05/16 10/05/16 10/06/16 10/06/16 10/06/16 07:00 15:00 23:00 07:00 15:00 23:00 Intake Total 1225 ml 1184 ml 467 ml 240 ml Output Total 200 ml 1200 ml 100 ml Balance 1025 ml -16 ml 367 ml 240 ml Intake Oral 240 ml 720 ml 240 ml 240 ml IV Total 985 ml 464 ml 227 ml Output Urine Total 1200 ml Stool Total 200 ml 0 ml 100 ml # Voids 0 1 1 Result Diagram: 10/04/16 0434 10/04/16 0434 Imaging Last Impressions Chest CT 10/02/16 0600 Signed Impressions: Service Date/Time: Sunday, October 02, 2016 08:01 - CONCLUSION: 1. No evidence of acute thoracic abnormality. No masses are identified. No evidence of metastatic disease. Buck Quiroz MD Abdomen/Pelvis CT 09/30/162036 Signed Impressions: Service Date/Time: Friday, September 30, 2016 22:49 - CONCLUSION: 1. Markedly abnormal anorectal region with mural thickening of the rectum extending cephalad into the distal sigmoid colon. Rectal wall is thickened up to 2.4 cm and there is a questionable 3 cm perirectal abscess. Cannot exclude neoplasm. There is associated severe constipation. Jasiel Cruz MD Procedures With Diagnosis of Rectal Cancer he had Laparoscopic assisted Sigmoid Colostomy done 10/02/16 by Doctor Shan Michaud Other Results Laboratory Tests Test 10/02/16 10/02/16 10/02/16 10/03/16 04:32 10:30 11:14 04:55 Ovalocytes 1+ Phosphorus Level 3.2 MG/DL Magnesium Level 2.4 MG/DL Iron Level 10 MCG/DL Total Iron Binding Capacity 167 MCG/DL Percent Iron Saturation 6.0 % Ferritin 290 NG/ML Carcinoembryonic Antigen 11.8 NG/ML Antibody Screen NEGATIVE Crossmatch Leukocyte-Reduced Red Blood Cells Blood Bank Comment Blood Type O POSITIVE Differential Total Cells 100 Counted Neutrophils % (Manual) 86 % Band Neutrophils % 7 % Lymphocytes % 3 % Monocytes % 3 % Neutrophils # (Manual) 11.1 TH/MM3 Metamyelocytes 1 % Platelet Estimate HIGH Platelet Morphology Comment NORMAL Test 10/04/16 04:34 White Blood Count 10.1 TH/MM3 Red Blood Count 4.26 MIL/MM3 Hemoglobin 9.4 GM/DL Hematocrit 30.5 % Mean Corpuscular Volume 71.7 FL Mean Corpuscular Hemoglobin 22.0 PG Mean Corpuscular Hemoglobin 30.7 % Concent Red Cell Distribution Width 19.1 % Platelet Count 541 TH/MM3 Mean Platelet Volume 6.6 FL Neutrophils (%) (Auto) 72.8 % Lymphocytes (%) (Auto) 17.2 % Monocytes (%) (Auto) 8.9 % Eosinophils (%) (Auto) 0.5 % Basophils (%) (Auto) 0.6 % Neutrophils # (Auto) 7.3 TH/MM3 Lymphocytes # (Auto) 1.7 TH/MM3 Monocytes # (Auto) 0.9 TH/MM3 Eosinophils # (Auto) 0.0 TH/MM3 Basophils # (Auto) 0.1 TH/MM3 CBC Comment AUTO DIFF Differential Comment AUTO DIFF CONFIRMED Sodium Level 141 MEQ/L Potassium Level 4.1 MEQ/L Chloride Level 106 MEQ/L Carbon Dioxide Level 30.2 MEQ/L Anion Gap 5 MEQ/L Blood Urea Nitrogen 5 MG/DL Creatinine 0.87 MG/DL Estimat Glomerular Filtration 92 ML/MIN Rate Random Glucose 105 MG/DL Calcium Level 8.2 MG/DL Objective Remarks GENERAL: No acute distress. SKIN: No rashes, ecchymoses or lesions. Cool and dry. HEAD: Atraumatic. Normocephalic. No temporal or scalp tenderness. EYES: Pupils equal round and reactive. Extraocular motions intact. ENT: No lymphadenopathy. NECK: Trachea midline. No JVD or lymphadenopathy. CARDIOVASCULAR: Regular rate and rhythm without murmurs, gallops, or rubs. RESPIRATORY: Clear to auscultation. Breath sounds equal bilaterally. No wheezes , rales, or rhonchi. GASTROINTESTINAL: Abdomen soft, nondistended. Colostomy in place. MUSCULOSKELETAL: Extremities without clubbing, cyanosis, or edema. NEUROLOGICAL: Awake and alert. No focal deficits. Medications and IVs Current Medications Medications (Trade) Dose Ordered Sig/Kirt Route Start Time Stop Time Status Last Admin (D5-NS + KCl 20 Meq Inj) 1,000 ml @ 50 mls/hr Q20H IV 10/02/16 18:10 10/05/16 20:41 (NS Flush) 2 ml UNSCH PRN IVF 10/02/16 18:15 (NS Flush) 2 ml BID IVF 10/02/16 21:00 10/04/16 20:06 ([place] 5-325 Mg) 1 tab Q4H PRN PO 10/02/16 18:15 ([place] 5-325 Mg) 2 tab Q4H PRN PO 10/02/16 18:15 10/06/16 02:13 (Tylenol) 650 mg Q4H PRN PO 10/02/16 18:15 (Protonix Inj) 40 mg DAILY IVP 10/03/16 09:00 (Protonix) 40 mg DAILY PO 10/03/16 09:00 10/06/16 08:48 (Zofran Inj) 4 mg Q6H PRN IV 10/02/16 18:15 (Vasotec Inj) 1.25 mg Q4H PRN IV 10/02/16 18:15 (Vasotec Inj) 2.5 mg Q6H PRN IV 10/02/16 18:15 Benzocaine/ Menthol 1 lozenge 1 lozenge UNSCH PRN BUCCAL 10/02/16 18:15 Potassium Chloride 100 ml @ 50 mls/hr UNSCH PRN IV 10/02/16 18:15 (KCl 40 Meq Premix Inj) 100 ml @ 25 mls/hr UNSCH PRN IV 10/02/16 18:15 (Reglan Inj) 10 mg Q12HR PRN IVS 10/05/16 19:30 A/P Assessment and Plan 1. Large Rectal Cancer awaiting for Biopsy report consult vision specialist. Radiation Oncology status post Laparoscopic Colostomy, stable awaiting final by Colorectal Surgery and Radiation vision specialist. no off antibiotics. as per Colorectal surgery ready for discharge he had already Ostomy Teaching and Radiation Stimulation. 2. Microcytic Anemia secondary to #1. stable. Discussed with patient nurse Ramonita adolfo. Prophylaxis. SCDs. the patient has good activity. Discharge Planning Discharge Home Nagi Isabel MD Oct 06, 2016 12:31
--- NOTE | 2016-10-06 12:35 | HHI.DS ---
Discharge Summary Admission Date Sep 30, 2016 at 23:52 Discharge Date: Oct 06, 2016 Admitting Diagnosis sepsis, perirectal abscess (1) Rectal cancer ICD Code: C20 Diagnosis: Principal Procedures With Diagnosis of Rectal Cancer he had Laparoscopic assisted Sigmoid Colostomy done 10/02/16 by Doctor Shan Michaud Brief History - From Admission 51-year-old male with history of nephrolithiasis, back surgery 30 years ago, who presents with a four-day history of dull, intermittent, nonradiating lower abdominal pain, worse with urination, as well as sharp intermittent, nonradiating rectal pain, exacerbations of which are accompanied by fevers, as high as 101. He also reports watery diarrhea over this time, feels as if urine is backing up from his bladder and going through rectum. Denies any dysuria, does report lower abdominal pain with urination. Patient reports an 85 pound weight loss over the past year which she is accomplished with diet and exercise. CBC/BMP: 10/04/16 0434 10/04/16 0434 Significant Findings Laboratory Tests Test 10/04/16 04:34 Red Blood Count 4.26 MIL/MM3 (4.50-5.90) Hemoglobin 9.4 GM/DL (13.0-17.0) Hematocrit 30.5 % (39.0-51.0) Mean Corpuscular Volume 71.7 FL (80.0-100.0) Mean Corpuscular Hemoglobin 22.0 PG (27.0-34.0) Mean Corpuscular Hemoglobin 30.7 % Concent (32.0-36.0) Red Cell Distribution Width 19.1 % (11.6-17.2) Platelet Count 541 TH/MM3 (150-450) Mean Platelet Volume 6.6 FL (7.0-11.0) Neutrophils (%) (Auto) 72.8 % (16.0-70.0) Monocytes (%) (Auto) 8.9 % (0.0-8.0) Blood Urea Nitrogen 5 MG/DL (7-18) Calcium Level 8.2 MG/DL (8.5-10.1) Imaging Last Impressions Chest CT 10/02/16 0600 Signed Impressions: Service Date/Time: Sunday, October 02, 2016 08:01 - CONCLUSION: 1. No evidence of acute thoracic abnormality. No masses are identified. No evidence of metastatic disease. Buck Quiroz MD Abdomen/Pelvis CT 09/30/162036 Signed Impressions: Service Date/Time: Friday, September 30, 2016 22:49 - CONCLUSION: 1. Markedly abnormal anorectal region with mural thickening of the rectum extending cephalad into the distal sigmoid colon. Rectal wall is thickened up to 2.4 cm and there is a questionable 3 cm perirectal abscess. Cannot exclude neoplasm. There is associated severe constipation. Jasiel Cruz MD PE at Discharge GENERAL: No acute distress. SKIN: No rashes, ecchymoses or lesions. Cool and dry. HEAD: Atraumatic. Normocephalic. No temporal or scalp tenderness. EYES: Pupils equal round and reactive. Extraocular motions intact. ENT: No lymphadenopathy. NECK: Trachea midline. No JVD or lymphadenopathy. CARDIOVASCULAR: Regular rate and rhythm without murmurs, gallops, or rubs. RESPIRATORY: Clear to auscultation. Breath sounds equal bilaterally. No wheezes , rales, or rhonchi. GASTROINTESTINAL: Abdomen soft, nondistended. Colostomy in place. MUSCULOSKELETAL: Extremities without clubbing, cyanosis, or edema. NEUROLOGICAL: Awake and alert. No focal deficits. Hospital Course This is a pleasant 51 y/o male with history of Nephrolithiasis, back surgery 30 years ago, came to ER with abdominal pain Rectal pain, fever, was admitted with diagnosis of Sepsis, started on Cipro and Flagyl, status post consult by Colon and rectal liquified natural gas specialist, now status post Sigmoidoscopy, found Large Rectal Cancer, status post Biopsy. by Doctor Michaud Seen in his bedroom in the presence of his Ex and his Son and he states with his family that he is very confident that with treatment he will do better, no Nausea, vomit or diarrhea stable. he will need Dietitian consult after procedures performed. 10/03 With Diagnosis of Rectal Cancer he had Laparoscopic assisted Sigmoid Colostomy done 10/02/16 by Doctor Shan Michaud Discussed with him and two children in the room, Radiation referral specialist following, discussed with nurse Miss Chrystal no new issues, not yet working Colostomy. 10/04 Seen in his bedroom not yet Colostomy working, no complaint. seen with his Children in the room. 10/05 patient stable seen in the presence of relative, not yet ready for discharge, had his Radiation Stimulation, discussed with nurse Miss Shipman she will let me know if is discharged by Colon and Rectal Surgery. having ostomy Education 10/06 Stable seen in his bedroom, already recommended by Colon and Rectal Surgery for discharge at this time will follow as outpatient, he has already an appointment to Start Radiation therapy. No nausea, vomit or diarrhea. Assessment and Plan 1. Large Rectal Cancer awaiting for Biopsy report consult physical security specialist. Radiation Oncology status post Laparoscopic Colostomy, stable awaiting final by Colorectal Surgery and Radiation physical security specialist. no off antibiotics. as per Colorectal surgery ready for discharge he had already Ostomy Teaching and Radiation Stimulation. 2. Microcytic Anemia secondary to #1. stable. Discussed with patient nurse Miss Shipman appreciated. Prophylaxis. SCDs. the patient has good activity. Discharge Planning Discharge Home Pt Condition on Discharge: Good Discharge Disposition: Disch w/ Home Health Serv Discharge Time: > 30 minutes Discharge Instructions DIET: Follow Instructions for: As Tolerated, No Restrictions Activities you can perform: Regular-No Restrictions Nagi Isabel MD Oct 06, 2016 12:35
--- NOTE | 2016-10-06 12:36 | HHI.FF ---
Face to Face Verification Diagnosis: (1) Rectal cancer Home Health Nursing Order: Medical education Signs/symptoms of disease process Wound care and dressing changes I have seen patient Maynor Porter on 10/06/16. My clinical findings support the need for the requested home health care services because: Limited ability to care for self I certify that my clinical findings support that this patient is homebound because: Unsafe to leave home unassisted Nagi Isabel MD Oct 06, 2016 12:36
[2016-10-06] MEDS ORDERED: HYDR-3516 PO (15:37)
--- NOTE | 2016-10-08 09:17 | MP ---
cc: BILLY REHMAN M.D. DATE OF SURGERY October 02, 2016 PREOPERATIVE DIAGNOSIS Obstructing rectal cancer. PROCEDURE Laparoscopic assisted loop sigmoid colostomy. POSTOPERATIVE DIAGNOSIS Obstructing rectal cancer. SURGEON Dr. Rehman PROCEDURE The patient was placed in the supine position. After adequate general anesthesia his legs were placed in the [place] stirrups and supported appropriately. The abdomen and perineum were then prepped with Betadine solution and draped in the usual sterile fashion. Initially a small infraumbilical incision was made and a Veress needle inserted establishing pneumoperitoneum. A 5-mm trocar was then placed under direct vision. Laparoscope was inserted. Examination revealed the rectum and rectosigmoid to be very chronically thickened and enlarged due to chronic obstruction. There did appear to be some peritoneal seeding at the cul-de-sac area. The proximal colon appeared to be more normal in caliber. Small bowel appeared normal. The liver had no obvious masses. The gallbladder was present. No peritoneal seeding was noted. There was no ascites in the abdomen. A second trocar was then placed in the midline in the suprapubic region and the sigmoid loop was very large and dilated. Area of apex was chosen suitable for a diverting colostomy. A transverse incision was then made in the left abdomen, taking down through the subcutaneous tissue, opening up the rectus fascia and splitting the rectus muscles, entering the posterior rectus sheath and peritoneum under direct vision, releasing the pneumoperitoneum. The chosen loop of bowel was able to be brought up through this incision without tension and with good blood supply creating an avascular plane in the mesentery and putting a colostomy bar in place. The pneumoperitoneum was then fully evacuated. Both trocar sites were closed with subcuticular Vicryl sutures. The colostomy was then matured by creating a transverse colotomy and maturing both proximal and distal limbs with interrupted chromic catgut sutures around the circumference. There did appear to be quite a bit of thickening and chronic edema to the bowel wall. Quite a bit of stool was also released from the proximal and distal limbs. After full maturation, the colostomy appeared to be viable and was patent through both limbs, sterile colostomy appliance fitted over the new stoma. Steri-Strips and gauze were placed over the trocar sites. The patient tolerated the procedure quite well and was brought to the recovery room in stable condition. The sponge and needle counts were correct at the end of the procedure. MD REDD Gamboa/MARITZA /10:43 PM /9:10 AM
--- NOTE | 2016-10-26 07:10 | MP ---
cc: BILLY REHMAN M.D. DATE OF SURGERY October 01, 2016 PREOPERATIVE DIAGNOSIS Rectal mass. Possible colonic obstruction. PROCEDURE Exam under anesthesia with limited colonoscopy and multiple biopsies. POSTOPERATIVE DIAGNOSES 1. Large rectal cancer with high-grade obstruction. 2. Poor bowel prep. SURGEON Dr. Rehman PROCEDURE The patient was placed in the supine position. After adequate anesthesia sedation, he was then placed in the left lateral position. His buttocks, prepped with Betadine solution and draped in the usual sterile fashion. Initial rectal exam confirmed a very large mass inside the rectal vault which was fixed and very friable, appeared to extend up several cm and in the lumen did narrow making the proximal lumen very small. The Olympus colonoscope was then inserted and after irrigating the rectum copiously with saline, a large rectal cancer was identified which extended for many cm, almost obstructing the lumen of the proximal rectum. The scope was able to be passed through this lumen into the proximal bowel which was quite dilated and full of both solid and liquid stool. The scope passed up through the proximal colon until the prep became very poor and visualization very difficult. The scope was therefore gradually withdrawn, releasing as much of the liquid stool and air and gas as could be suctioned through the colonoscope. Upon withdrawal back into the rectum, multiple biopsies of this mass were taken. It appeared to come fairly close to the distal rectum. The patient tolerated the procedure quite well and was brought to the recovery room in stable condition. MD REDD Gamboa/MARITZA /4:50 PM /7:05 AM
[2016-12-30] MEDS ORDERED: TYLETAB34 PO (08:31)
[2016-12-30] MEDS ORDERED: FERR325C PO (08:31)
== END 2016-10-06 14:48 | disposition home health service (06) | DRG 330 ==
LOC: NEPA 15:18 → NEDA 23:52 → NEDH 10-01 03:52 → N07A 10-01 14:37
PROVIDERS: ADMIT Internal Medicine; ATTEND Internal Medicine
PROC: 0DBP8ZX Excision of Rectum, Via Natural or Artificial Opening Endoscopic, Diagnostic (ICD-10-PCS; 2016-10-01)
PROC: 30233N1 Transfusion of Nonautologous Red Blood Cells into Peripheral Vein, Percutaneous Approach (ICD-10-PCS; 2016-10-02)
PROC: 0D1N4Z4 Bypass Sigmoid Colon to Cutaneous, Percutaneous Endoscopic Approach (ICD-10-PCS; principal; 2016-10-05)
DX: C20 Malignant neoplasm of rectum (principal); E87.1 Hypo-osmolality and hyponatremia; K56.69 Other intestinal obstruction; R65.10 Systemic inflammatory response syndrome (SIRS) of non-infectious origin without acute organ dysfunction; D63.0 Anemia in neoplastic disease; K59.00 Constipation, unspecified; Z87.891 Personal history of nicotine dependence
CPT/HCPCS: 36430; 71260; 74177; 80048; 80053; 81001; 82378; 82728; 83540; 83550; 83605; 83690; 83735; 84100; 84153; 85007; 85025; 85027; 85610; 85730; 86850; 86900; 86901; 86920; 87040; 87493; 87506; 88305; 93005; 94150; 96361; 96365; 96375; 99222; C9113; J0131; J0690; J0744; J1100; J1885; J2250; J2270; J2370; J2405; J2710; J2765; J3010; J3480; J7030; J7120; P9016; Q9967

== ENCOUNTER 2016-12-29 09:10 | Inpatient (IN) | payer OTHER ==
[~2016-12-29] VITALS: Ht 177.8 cm; Wt 67.0 kg
[~2016-12-29 09:10] MED LIST changes: -CIPR500T2 PO; +HYDR-3516 PO; -HYDR10TA16 PO; -Z.0.NO CURRENT MEDS; -[UNRECOGNIZED DRUG - OTHER] PO
[2016-12-30] MEDS ORDERED: FERR325C PO ×2 (08:31)
[2016-12-30] MEDS ORDERED: TYLETAB34 PO ×2 (08:31)
[2017-01-06] VITALS (8 sets, daily range): BP systolic 104–138; BP diastolic 63–75; PULSE 94–122; RESP 16–18; TEMP 97.4–99.2; O2SAT 99–100
[2017-01-06] MEDS ORDERED: PROPOFOL 200 MG/20 ML AMP IV ONE (10:02)
[2017-01-06] MEDS ORDERED: LACTATED RINGER'S 1000 ML INJ 3,000 ML IV ONE (10:02)
[2017-01-06] MEDS ORDERED: PHENYLEPH/NS 1000 MCG/10 ML SYR IV ONE (10:02)
[2017-01-06] MEDS ORDERED: ONDANSETRON HCL 4 MG/2 ML VIAL IV PUSH ONE (10:02)
[2017-01-06] MEDS ORDERED: metroNIDAZOLE 500 MG INJ 100 ML IV ONE (11:59)
[2017-01-06] MEDS ORDERED: SODIUM CHLORIDE 0.9% INJ 100 ML ONE (11:59)
[2017-01-06] MEDS ORDERED: ceFAZolin INJ 1,000 MG VIAL ONE (11:59)
[2017-01-06] MEDS ORDERED: ALVIMOPAN 12 MG CAPSULE ONE (11:59)
[2017-01-06] MEDS ORDERED: VECURONIUM BROMIDE 10 MG VIAL IV ONE (12:00)
[2017-01-06] MEDS ORDERED: METRONIDAZOLE 500 MG/100 ML ISONTONIC SOLN IV SCH (12:15)
[2017-01-06] MEDS ORDERED: ALVIMOPAN 12 MG CAPSULE - On Call PO SCH (12:15)
[2017-01-06] MEDS ORDERED: DEXT 5%-NACL 0.9% 1000 ML INJ 1,000 ML IV SCH (12:15)
[2017-01-06] MEDS ORDERED: CHLORHEXIDINE GLUCONATE 2 % 1 PACK (2 CLOTHS) TOPICAL PRN (12:15)
[2017-01-06] MEDS ORDERED: INSULIN HUMAN REGULAR 1,000 UNITS/10 ML VIAL SQ PRN (12:15)
[2017-01-06] MEDS ORDERED: METOPROLOL TARTRATE 25 MG TAB PO PRN (12:15)
[2017-01-06] MEDS ORDERED: ceFAZolin 1,000 MG/NS 100 ML IV SCH ×2 (12:15)
[2017-01-06] MEDS ORDERED: LACTATED RINGER'S 1000 ML IV PRN (12:15)
[2017-01-06] MEDS ORDERED: SODIUM CHLORID 0.9% 500 ML IV PRN (12:15)
[2017-01-06] MEDS ORDERED: POVIDONE IODINE 5% (ANTISEPSIS KIT) 4 APPLICATIONS EACH NARE PRN (12:15)
[2017-01-06] MEDS ORDERED: BUPIVACAINE HCL PF 0.5% 30 ML VIAL ONE (12:18)
[2017-01-06] MEDS ORDERED: FAMOTIDINE 20 MG/2 ML VIAL ONE (12:25)
[2017-01-06] MEDS ORDERED: MIDAZOLAM HCL 2 MG/2 ML VIAL ONE (12:25)
[2017-01-06] MEDS ORDERED: ACETAMINOPHEN 1000 MG/100 ML VIAL IV ONE (12:25)
[2017-01-06] MEDS ORDERED: DICLOFENAC SODIUM 37.5 MG/ML VIAL IV PUSH ONE (12:26)
[2017-01-06] MEDS ORDERED: DEXAMETHASONE SOD PHOS 4 MG/ML VIAL ONE (12:26)
[2017-01-06] MEDS ORDERED: fentaNYL CITRATE 250 MCG/5 ML AMP ONE ×2 (12:26→16:18)
--- NOTE | 2017-01-06 12:39 | PD.HP.UP ---
H&P Update Note The Pre-Admit History and Physical Examination regarding the above named patient was reviewed (including, but not limited to, vital signs, heart, lungs, co-morbid conditions), and upon re-examination it is noted that: the patient's condition has not significantly changed since the last examination. Shan Michaud MD Jan 06, 2017 12:39
[2017-01-06] MEDS ORDERED: SUGAMMADEX SODIUM 200 MG/2 ML VIAL IV PUSH ONE ×2 (15:50)
[2017-01-06] MEDS ORDERED: ENALAPRILAT 2.5 MG/2 ML VIAL IV PRN (16:00)
[2017-01-06] MEDS ORDERED: NALOXONE HCL 0.4 MG/ML AMP IV PRN (16:00)
[2017-01-06] MEDS ORDERED: BENZOCAINE 6 MG/MENTHOL 10 MG LOZENGE BUCCAL PRN (16:00)
[2017-01-06] MEDS ORDERED: ACETAMINOPHEN/HYDROcodone 325 MG/5 MG TAB PO PRN (16:00)
[2017-01-06] MEDS ORDERED: SODIUM CHLORIDE 0.9% FLUSH 5 ML FLUSH IVF PRN (16:00)
[2017-01-06] MEDS ORDERED: ACETAMINOPHEN 325 MG TAB PO PRN (16:00)
[2017-01-06] MEDS ORDERED: ENALAPRILAT 1.25 MG/ML VIAL IV PRN (16:00)
[2017-01-06] MEDS ORDERED: POTASSIUM CHLOR 20 MEQ PREMIX 100 ML IV PRN (16:00)
[2017-01-06] MEDS ORDERED: POTASSIUM CHLOR 40 MEQ PREMIX 100 ML IV PRN (16:00)
[2017-01-06] MEDS ORDERED: ONDANSETRON HCL 4 MG/2 ML VIAL IV PRN (16:00)
[2017-01-06] MEDS ORDERED: Post-op Orders (for Pharmacy) MISC XX ONE (16:03)
[2017-01-06] MEDS ORDERED: MORPHINE SULFATE 30 MG/30 ML PCA ONE (16:18)
[2017-01-06] MEDS: D5-NS + KCL 20 MEQ INJ 1,000 ML IV SCH ×2 (16:25→21:45)
[2017-01-06] MEDS: MORPHINE SULFATE 30 MG/30 ML PCA IV SCH (16:25)
[2017-01-06] MEDS ORDERED: SODIUM CHLOR 0.9% 250 ML INJ 250 ML IV ONE (16:30)
[2017-01-06] MEDS ORDERED: *morphine SULFATE 8 MG/ML PERIprocedure ONLY ONE ×2 (16:33→16:41)
[2017-01-06] MEDS ORDERED: DO NOT ADM ANY ANTICOAGULANT DRUGS PRN (16:45)
[2017-01-06] MEDS ORDERED: *HYDROmorphone PF 1 MG VIAL PERIprocedural Use ONLY ONE (17:01)
[2017-01-06 17:18] LABS: AUTOMATED NEUTROPHIL # 7.9 TH/MM3 (1.8-7.7); BASOPHIL % 0.5 % (0.0-2.0); EOSINOPHIL % 0.1 % (0.0-4.0); HEMATOCRIT 32.2 % (39.0-51.0); HEMO FLAGS DIFF FINAL; LYMPHOCYTE # 0.4 TH/MM3 (1.0-4.8); MEAN CELL VOLUME 74.7 FL (80.0-100.0); MEAN CORPUSCULAR HEMOGLOBIN 22.9 PG (27.0-34.0); MEAN CORPUSCULAR HGB CONC 30.7 % (32.0-36.0); MONO % 4.9 % (0.0-8.0); NEUT % 90.5 % (16.0-70.0); PLATELET COUNT 584 TH/MM3 (150-450); RED BLOOD COUNT 4.31 MIL/MM3 (4.50-5.90); RED CELL DISTRIBUTION WIDTH 19.9 % (11.6-17.2); WHITE BLOOD COUNT 8.7 TH/MM3 (4.0-11.0)
[2017-01-06] MEDS: SODIUM CHLORIDE 0.9% FLUSH 5 ML FLUSH IVF SCH (21:00)
[2017-01-06] MEDS: metroNIDAZOLE 500 MG INJ 100 ML IV SCH (21:43)
[2017-01-06] MEDS: METOCLOPRAMIDE HCL 10 MG/2 ML VIAL IVS SCH (21:44)
[2017-01-06] MEDS: PCA - TOTAL MG MORPHINE DELIVERED PER SHIFT SCH (22:00)
[2017-01-07] VITALS (25 sets, daily range): BP systolic 103–112; BP diastolic 63–71; PULSE 88–116; RESP 16; TEMP 98–99.2; O2SAT 97–100
[2017-01-07] MEDS: D5-NS + KCL 20 MEQ INJ 1,000 ML IV SCH ×4 (03:34→21:17)
[2017-01-07] MEDS: KETOROLAC TROMETHAMINE 30 MG/ML (IVP) VIAL IVP PRN ×3 (03:34→14:59)
[2017-01-07] MEDS: metroNIDAZOLE 500 MG INJ 100 ML IV SCH ×2 (03:35→11:56)
[2017-01-07] MEDS: PCA - TOTAL MG MORPHINE DELIVERED PER SHIFT SCH ×3 (06:00→21:17)
[2017-01-07 06:08] LABS: AUTOMATED NEUTROPHIL # 10.2 TH/MM3 (1.8-7.7); HEMATOCRIT 26.3 % (39.0-51.0); HEMO FLAGS DIFF FINAL; LYMPH % 3.2 % (9.0-44.0); LYMPHOCYTE # 0.4 TH/MM3 (1.0-4.8); MEAN CELL VOLUME 75.1 FL (80.0-100.0); MEAN CORPUSCULAR HEMOGLOBIN 22.6 PG (27.0-34.0); MEAN CORPUSCULAR HGB CONC 30.1 % (32.0-36.0); MONO % 6.7 % (0.0-8.0); NEUT % 90.1 % (16.0-70.0); PLATELET COUNT 521 TH/MM3 (150-450); RED CELL DISTRIBUTION WIDTH 19.2 % (11.6-17.2); WHITE BLOOD COUNT 11.3 TH/MM3 (4.0-11.0)
[2017-01-07 06:23] LABS: BICARBONATE 27.8 MEQ/L (21.0-32.0); POTASSIUM 4.7 MEQ/L (3.5-5.1)
--- NOTE | 2017-01-07 06:57 | MP ---
cc: MARK FLANNERY DATE OF SURGERY 01/06/2017 PREOPERATIVE DIAGNOSIS Rectal cancer. POSTOPERATIVE DIAGNOSIS Rectal cancer. PROCEDURE Cystoscopy with bilateral ureteral catheter placement. SURGEON MD Aguilar ANESTHESIA General endotracheal tube. FLUIDS 100 cc crystalloid. ESTIMATED BLOOD LOSS No blood loss. COMPLICATIONS No complications. INDICATIONS Mr. Maynor Pedro is a 51-year-old male who presented with a history of rectal cancer and request was made for bilateral ureteral catheter placement. PROCEDURE The patient was placed in the dorsal lithotomy position and he was prepped and draped in the usual sterile fashion. He received preprocedure antibiotics. General endotracheal tube anesthesia was administered. A 22-Central African cystoscope was inserted in the bladder and justin-cystoscopy did not show any abnormalities. The left ureteral orifice was cannulated with a 6-Central African open-ended catheter and this was repeated on the right side without difficulty. He tolerated the procedure well. Mark RAMIREZ/MARITZA /1:52 PM /6:42 AM
[2017-01-07] MEDS: MORPHINE SULFATE 30 MG/30 ML PCA IV SCH ×2 (07:27→19:56)
--- NOTE | 2017-01-07 07:42 | HHI.PR ---
Subjective Remarks C/R Surg POD #1 afebrile, VSS UO good ANGELINA min Objective - Vital Signs Date Time Temp Pulse Resp B/P Pulse Ox O2 Delivery O2 Flow Rate FiO2 01/07/17 07:36 16 01/07/17 06:02 105 01/07/17 03:47 98.0 109/71 99 01/06/17 17:30 Nasal Cannula 2 Result Diagram: 01/07/17 0536 01/07/17 0530 Objective Remarks PE alerT Abd - soft, wound dry, ANGELINA serous A/P Assessment and Plan Imp: stable post-op OOB decr IVF tx to floor Shan Michaud MD Jan 07, 2017 07:42
[2017-01-07] MEDS: PANTOPRAZOLE SODIUM 40 MG VIAL IVP SCH (08:42)
[2017-01-07] MEDS: METOCLOPRAMIDE HCL 10 MG/2 ML VIAL IVS SCH ×2 (08:43→21:17)
[2017-01-07] MEDS: ALVIMOPAN 12 MG CAPSULE - Post-op dosing PO SCH ×2 (08:43→21:16)
[2017-01-07] MEDS: SODIUM CHLORIDE 0.9% FLUSH 5 ML FLUSH IVF SCH ×2 (08:44→21:00)
[2017-01-07] MEDS: PANTOPRAZOLE SOD 40 MG DELAYED RELEASE TAB PO SCH (08:44)
--- NOTE | 2017-01-07 13:13 | MP ---
cc: BILLY REHMAN M.D. DATE OF SURGERY 01/07/2017 PREOPERATIVE DIAGNOSES 1. Rectal cancer. 2. Status post radiation chemotherapy. PROCEDURE Exploratory laparotomy with proctosigmoidectomy and low pelvic anastomosis, on-table bowel prep, diverting ileostomy, resection of left seminal vesical and omental flap. POSTOPERATIVE DIAGNOSIS Large bulky rectal tumor, rectal cancer. SURGEON Dr. Billy Rehman CONCR[employer]TER Dr. Buck Sanchez PROCEDURE The patient was placed in the supine position. After adequate general anesthesia, his legs were placed in the [place] stirrups and supported appropriately. The abdomen and perineum were then prepped with Betadine solution and draped in the usual sterile fashion. With Dr. Sanchez's assistance, the abdomen was opened through a midline incision. Exploration revealed a very large, bulky tumor in the distal sigmoid/proximal rectum which was stuck down to the left pelvic sidewall into the anterior midline. The proximal bowel was softly distended with both air and liquid stool. No other masses were palpated. The small bowel was run from the ligament of Treitz down to the ileocecal valve and felt to be pretty unremarkable. The liver had no palpable masses. The gallbladder was unremarkable. The stomach and duodenum were normal. The great vessels were of normal caliber and fairly soft to palpation. First, the sigmoid colon was mobilized medially by dividing along the white line of Toldt. The left ureteral stent was easily palpated and carefully preserved. Dissection then proceeded up the left gutter freeing attachments to the retroperitoneum, taking down the splenic flexure, entering the lesser sac and taking the gastrocolic omentum off the transverse colon. The right retroperitoneal space was then opened and the bowel mobilized off the presacral fascia. There were quite a bit of adhesions and scarring and fibrosis between the rectum and the presacral space. The pedicle for the superior hemorrhoidal vessels were identified and divided between Heidi's obtaining hemostasis with Vicryl ties. The right ureteral stent was easily palpated and preserved. The left colic vessels were similarly taken between Heidi's and ligated with Vicryl ties for full left mobilization. Dissection then proceeded down to the pelvis, mobilizing the tumor off the presacral space which was very difficult. The anterior dissection was difficult too, trying to get a plane between the anterior rectal wall and the prostate was difficult and the left seminal vesicle appeared to be involved perhaps with either fibrosis or tumor and was taken with the specimen. Eventually the pelvic sidewall was freed and the bowel mobilized up out of the pelvis, obtaining softer but somewhat inflamed rectum distal to the obvious tumor. Dissection proceeded down to the pelvic floor until softer more pliable bowel was encountered. At this point the mesorectum was taken with electrocautery and the bowel divided using a contour stapling device. Next, the bowel was sized to reach the rectal pouch without tension and with good blood supply, dividing the marginal artery at the appropriate point proximal to the tumor. The bowel was then divided between a pursestring suture device and a Nikki clamp. The specimen was removed. Several liters were then infused into the bowel to prep the bowel until the effluent was pretty clear. At this point a 29-mm EEA anvil was secured in the end of the bowel using the pursestring suture. Dr. Sanchez then inserted the EEA stapling instrument transanally and under direct vision it was brought up to the rectal pouch and the trocar advanced. The stapler was then reassembled in the bowel line properly, the staple closed and fired. Upon withdrawal two complete doughnuts of tissue were seen. Gentle insufflation did confirm an airtight anastomosis. The abdomen was then irrigated copiously with normal saline, adequate hemostasis achieved at all sites. A loop of a distal lumen was chosen for the diverting ileostomy and an avascular plane created in the mesentery. A circular stab wound was then created in the right side of the abdomen and the loop brought up through this stab wound without tension and with good blood supply, the distal end closed with firing of a TA 60 stapler. It should be noted that the previous colostomy had been taken down after full left mobilization to prepare for the resection. The old colostomy site was closed in two layers using #1 PDS sutures to reapproximate the respective fascial layers in a transverse fashion. The pelvis was drained with a Flaquito-Menjivar drain brought up through a stab wound in the right lower quadrant and secured to the skin with a nylon suture. The omentum was passed down into the pelvis and wrapped around the anastomosis. The midline incision was then closed anatomically in one layer using #1 PDS sutures to reapproximate the midline fascia. The subcutaneous tissue was irrigated copiously and the skin closed with interrupted surgical francois. The wound area was washed with normal saline and dried. Colostomy site was similarly closed with a row of surgical francois. Sterile colostomy appliance was fitted over the new ileostomy. Telfa and gauze dressing placed on all the abdominal incisions. The patient tolerated the procedure quite well and was brought to the recovery room in stable condition. Sponge and needle counts were correct at the end of the case. MD REDD Gamboa/MARITZA /10:37 PM /12:57 PM
[2017-01-07] MEDS ORDERED: SODIUM CHLORID 0.9% 500 ML INJ 500 ML IV ONE (17:45)
[2017-01-07 20:08] LABS: REVIEW FLAG FINAL
[2017-01-07] MEDS ORDERED: ALVIMOPAN 12 MG CAPSULE PO SCH (21:00)
[2017-01-08] VITALS (9 sets, daily range): BP systolic 116–148; BP diastolic 69–78; PULSE 92–104; RESP 16–17; TEMP 96.9–98.8; O2SAT 97–100
[2017-01-08] MEDS: KETOROLAC TROMETHAMINE 30 MG/ML (IVP) VIAL IVP PRN ×3 (03:49→23:28)
[2017-01-08 04:58] LABS: AUTOMATED NEUTROPHIL # 8.1 TH/MM3 (1.8-7.7); BASOPHIL % 0.2 % (0.0-2.0); EOSINOPHIL % 0.3 % (0.0-4.0); HEMATOCRIT 23.3 % (39.0-51.0); HEMO FLAGS DIFF FINAL; LYMPH % 3.9 % (9.0-44.0); LYMPHOCYTE # 0.4 TH/MM3 (1.0-4.8); MEAN CORPUSCULAR HEMOGLOBIN 23.5 PG (27.0-34.0); MEAN CORPUSCULAR HGB CONC 30.9 % (32.0-36.0); MONO % 6.8 % (0.0-8.0); NEUT % 88.8 % (16.0-70.0); PLATELET COUNT 414 TH/MM3 (150-450); RED BLOOD COUNT 3.06 MIL/MM3 (4.50-5.90); RED CELL DISTRIBUTION WIDTH 19.1 % (11.6-17.2); WHITE BLOOD COUNT 9.2 TH/MM3 (4.0-11.0)
[2017-01-08 05:25] LABS: BICARBONATE 26.9 MEQ/L (21.0-32.0); POTASSIUM 4.4 MEQ/L (3.5-5.1)
[2017-01-08] MEDS: PCA - TOTAL MG MORPHINE DELIVERED PER SHIFT SCH ×3 (06:00→21:34)
[2017-01-08] MEDS ORDERED: SODIUM CHLOR 0.9% 250 ML INJ 250 ML IV ONE (08:00)
[2017-01-08] MEDS: PANTOPRAZOLE SOD 40 MG DELAYED RELEASE TAB PO SCH (08:09)
[2017-01-08] MEDS: PANTOPRAZOLE SODIUM 40 MG VIAL IVP SCH (08:09)
[2017-01-08] MEDS: METOCLOPRAMIDE HCL 10 MG/2 ML VIAL IVS SCH ×2 (08:09→20:50)
[2017-01-08] MEDS: ALVIMOPAN 12 MG CAPSULE - Post-op dosing PO SCH ×2 (08:10→20:50)
[2017-01-08] MEDS: SODIUM CHLORIDE 0.9% FLUSH 5 ML FLUSH IVF SCH ×2 (08:10→20:51)
[2017-01-08] MEDS: FUROSEMIDE 20 MG/2 ML VIAL IV PUSH SCH ×2 (08:55→20:50)
[2017-01-08] MEDS: MORPHINE SULFATE 30 MG/30 ML PCA IV SCH (12:51)
[2017-01-08] MEDS: D5-NS + KCL 20 MEQ INJ 1,000 ML IV SCH (14:58)
--- NOTE | 2017-01-08 18:19 | HHI.PR ---
Subjective Remarks C/R Surg POD #2 afebrile, VSS UO good ANGELINA moderate serous Objective - Vital Signs Date Time Temp Pulse Resp B/P Pulse Ox O2 Delivery O2 Flow Rate FiO2 01/08/17 16:00 97.3 93 17 118/71 100 01/06/17 17:30 Nasal Cannula 2 Result Diagram: 01/08/17 0419 01/08/17 0419 Objective Remarks PE alert Abd - soft, wound dry, ANGELINA serous stoma little output A/P Assessment and Plan Imp: OOB decr IVF start PO Shan Michaud MD Jan 08, 2017 18:19
[2017-01-09 04:49] VITALS: BP 136/82; PULSE 90; RESP 16; TEMP 96.7; O2SAT 97
[2017-01-09] MEDS: PCA - TOTAL MG MORPHINE DELIVERED PER SHIFT SCH (06:00)
[2017-01-09] MEDS: MORPHINE SULFATE 30 MG/30 ML PCA IV SCH (07:38)
[2017-01-09 08:00] VITALS: BP 140/82; PULSE 91; RESP 16; TEMP 97.2; O2SAT 98
[2017-01-09] MEDS: ALVIMOPAN 12 MG CAPSULE - Post-op dosing PO SCH ×2 (08:26→21:41)
[2017-01-09] MEDS: PANTOPRAZOLE SOD 40 MG DELAYED RELEASE TAB PO SCH (08:26)
[2017-01-09] MEDS: PANTOPRAZOLE SODIUM 40 MG VIAL IVP SCH (08:26)
[2017-01-09] MEDS: METOCLOPRAMIDE HCL 10 MG/2 ML VIAL IVS SCH ×2 (08:26→21:42)
[2017-01-09] MEDS: FUROSEMIDE 20 MG/2 ML VIAL IV PUSH SCH ×2 (08:27→21:43)
[2017-01-09] MEDS: SODIUM CHLORIDE 0.9% FLUSH 5 ML FLUSH IVF SCH ×2 (08:27→21:00)
--- NOTE | 2017-01-09 10:49 | HHI.PR ---
Subjective Remarks No N or V. Ileostomy starting. Objective Vital Signs Date Time Temp Pulse Resp B/P Pulse Ox O2 Delivery O2 Flow Rate FiO2 01/09/17 08:00 97.2 91 16 140/82 98 01/09/17 07:38 18 01/09/17 06:00 18 01/09/17 04:49 96.7 90 16 136/82 97 01/09/17 00:28 18 01/08/17 23:27 97.4 94 17 116/72 98 01/08/17 21:34 18 01/08/17 20:14 98.3 92 17 148/72 98 01/08/17 16:00 97.3 93 17 118/71 100 01/08/17 13:41 16 01/08/17 12:51 16 01/08/17 12:00 96.9 93 17 135/78 100 I/O 01/08/17 01/08/17 01/08/17 01/09/17 01/09/17 01/09/17 07:00 15:00 23:00 07:00 15:00 23:00 Intake Total 642 ml 990 ml 280 ml 240 ml 1491 ml Output Total 375 ml 1110 ml 1300 ml 940 ml Balance 267 ml -120 ml -1020 ml -700 ml 1491 ml Intake Oral 340 ml 280 ml 240 ml IV Total 642 ml 350 ml 1491 ml Packed Cells 300 ml Output Urine Total 225 ml 900 ml 1200 ml 800 ml Drainage Total 150 ml 210 ml 100 ml 140 ml # Bowel Movements 0 0 Result Diagram: 01/08/17 0419 01/08/17 0419 Objective Remarks VS-S Abd: soft,wound clean,stoma working Assessment and Plan Assessment and Plan Stable POD#3 Decrease IVs,Increase diet, D/C Miquel Harris MD Jan 09, 2017 10:48
[2017-01-09] MEDS: KETOROLAC TROMETHAMINE 30 MG/ML (IVP) VIAL IVP PRN (11:13)
[2017-01-09 12:00] VITALS: BP 123/77; PULSE 97; RESP 17; TEMP 98.9; O2SAT 99
[2017-01-09 16:00] VITALS: BP 134/88; PULSE 97; RESP 17; TEMP 98.7; O2SAT 99
[2017-01-09] MEDS: ACETAMINOPHEN/HYDROcodone 325 MG/5 MG TAB PO PRN ×2 (17:51→21:54)
[2017-01-09 20:00] VITALS: BP 130/82; PULSE 90; RESP 20; TEMP 98.1; O2SAT 99
[2017-01-09] MEDS: D5-NS + KCL 20 MEQ INJ 1,000 ML IV SCH (21:46)
[2017-01-10] VITALS: BP 135/75; PULSE 78; RESP 17; TEMP 97; O2SAT 96
[2017-01-10] MEDS: ACETAMINOPHEN/HYDROcodone 325 MG/5 MG TAB PO PRN ×4 (06:42→20:04)
--- NOTE | 2017-01-10 07:14 | HHI.PR ---
Subjective Remarks No N or V. Ileostomy working. Ambulating in halls. Objective Vital Signs Date Time Temp Pulse Resp B/P Pulse Ox O2 Delivery O2 Flow Rate FiO2 01/10/17 00:00 97.0 78 17 135/75 96 01/09/17 20:00 98.1 90 20 130/82 99 01/09/17 16:00 98.7 97 17 134/88 99 01/09/17 12:00 98.9 97 17 123/77 99 01/09/17 08:00 97.2 91 16 140/82 98 01/09/17 07:43 16 01/09/17 07:38 18 I/O 01/09/17 01/09/17 01/09/17 01/10/17 01/10/17 01/10/17 07:00 15:00 23:00 07:00 15:00 23:00 Intake Total 240 ml 3028 ml 320 ml 240 ml Output Total 940 ml 2060 ml 575 ml 800 ml Balance -700 ml 968 ml -255 ml -560 ml Intake Oral 240 ml 840 ml 320 ml 240 ml IV Total 2188 ml Output Urine Total 800 ml 1800 ml 300 ml 800 ml Stool Total 75 ml 0 ml Drainage Total 140 ml 260 ml 200 ml # Bowel Movements 0 Result Diagram: 01/08/17 0419 01/08/17 0419 Objective Remarks VS-S Abd: soft,wound clean,stoma working I&Os- OK-large serous drain output. Leave drain for now Assessment and Plan Assessment and Plan Stable POD#4 Decrease IVs,Increase diet, D/C hill. Leave drain for large serous outputs. Miquel White MD Jan 10, 2017 07:14
[2017-01-10 08:00] VITALS: BP 123/84; PULSE 100; RESP 17; TEMP 98.6; O2SAT 100
[2017-01-10] MEDS: PANTOPRAZOLE SOD 40 MG DELAYED RELEASE TAB PO SCH ×2 (08:12→08:15)
[2017-01-10] MEDS: ALVIMOPAN 12 MG CAPSULE - Post-op dosing PO SCH ×3 (08:12→19:59)
[2017-01-10] MEDS: PANTOPRAZOLE SODIUM 40 MG VIAL IVP SCH ×2 (08:12→08:36)
[2017-01-10] MEDS: METOCLOPRAMIDE HCL 10 MG/2 ML VIAL IVS SCH ×3 (08:12→20:00)
[2017-01-10] MEDS: FUROSEMIDE 20 MG/2 ML VIAL IV PUSH SCH ×2 (08:12→20:00)
[2017-01-10] MEDS: SODIUM CHLORIDE 0.9% FLUSH 5 ML FLUSH IVF SCH ×3 (08:13→20:00)
[2017-01-10 12:00] VITALS: BP 120/83; PULSE 85; RESP 16; TEMP 96.8; O2SAT 99
[2017-01-10 16:00] VITALS: BP 125/73; PULSE 88; RESP 17; TEMP 98.1; O2SAT 99
[2017-01-10 20:00] VITALS: BP 137/81; PULSE 104; RESP 20; TEMP 99; O2SAT 97
[2017-01-10] MEDS: D5-NS + KCL 20 MEQ INJ 1,000 ML IV SCH (20:01)
[2017-01-11 00:03] VITALS: BP 119/73; PULSE 90; RESP 17; TEMP 98.2; O2SAT 96
[2017-01-11] MEDS: ACETAMINOPHEN/HYDROcodone 325 MG/5 MG TAB PO PRN ×5 (00:29→16:57)
[2017-01-11 08:00] VITALS: BP 139/79; PULSE 83; RESP 17; TEMP 97.4; O2SAT 98
[2017-01-11] MEDS: ALVIMOPAN 12 MG CAPSULE - Post-op dosing PO SCH (08:12)
[2017-01-11] MEDS: METOCLOPRAMIDE HCL 10 MG/2 ML VIAL IVS SCH (08:13)
[2017-01-11] MEDS: FUROSEMIDE 20 MG/2 ML VIAL IV PUSH SCH (08:14)
[2017-01-11] MEDS: PANTOPRAZOLE SOD 40 MG DELAYED RELEASE TAB PO SCH (08:14)
[2017-01-11] MEDS: PANTOPRAZOLE SODIUM 40 MG VIAL IVP SCH (08:15)
[2017-01-11] MEDS: SODIUM CHLORIDE 0.9% FLUSH 5 ML FLUSH IVF SCH (09:00)
[2017-01-11 12:00] VITALS: BP 110/67; PULSE 92; RESP 16; TEMP 96.9; O2SAT 99
[2017-01-11] MEDS: D5-NS + KCL 20 MEQ INJ 1,000 ML IV SCH (14:40)
[2017-01-11 16:00] VITALS: BP 109/63; PULSE 101; RESP 16; TEMP 98.3; O2SAT 99
--- NOTE | 2017-01-11 16:28 | HHI.PR ---
Subjective Remarks C/R Surg POD #5 afebrile, VSS UO good ANGELINA moderate serous Objective - Vital Signs Date Time Temp Pulse Resp B/P Pulse Ox O2 Delivery O2 Flow Rate FiO2 01/11/17 16:00 98.3 101 16 109/63 99 Result Diagram: 01/08/17 0419 01/08/17418 Objective Remarks PE alert Abd - soft, wound dry, ANGELINA serous stoma good output A/P Assessment and Plan Imp: OOB decr IVF start PO, adv dc plans Shan Michaud MD Jan 11, 2017 16:28
[2017-01-11] MEDS ORDERED: HYDR-3516 PO (16:30)
--- NOTE | 2017-01-13 12:10 | PQ ---
Physician Query Response Document PATIENT: JUDY HARRISON : 1965 ADMIT DATE: 01/06/2017 10:51 AM DISCH DATE: 01/11/2017 5:35 PM RESPONDING PROVIDER #: AHRitter QUERY TEXT: Clarification of Clinical Diagnostic Findings Please clarify documentation or clinical relevance for the clinical / diagnostic findings or whether those are insignificant or unable to be further specified. Please provde the diagnosis for which the blood transfusion was administered: Chronic anemia due to malignancy Chronic anemia due to other cause: Acute anemia due to blood loss Acute anemia due to other cause: Anemia due to chemo and/or radiation Other type anemia: Other more appropriate diagnosis The patient's Clinical Indicators include: BLOOD TRANSFUSION 01/07 AND 01/08/17 H PROCTOSIGMOIDECTOMY, ILEOSTOMY, COLOSTOMY TAKEDOWN 01/06/17 ESTIMATED BLOOD LOSS 500ml Rectosigmoid Cancer, Status post chemotherapy and radiation. Query created by: Adeola Parmar on 01/13/2017 11:34 AM RESPONSE TEXT: Chronic anemia due to malignancy Electronically signed by: Shan Michaud MD 01/13/2017 12:06 PM
== END 2017-01-11 17:35 | disposition home or self-care (01) | DRG 331 ==
LOC: HSDI 01-06 10:51 → HCIN 01-06 17:59 → N07B 01-07 22:47
PROVIDERS: ADMIT Colon & Rectal Surgery; ATTEND Colon & Rectal Surgery
PROC: 0WUF07Z Supplement Abdominal Wall with Autologous Tissue Substitute, Open Approach (ICD-10-PCS; 2017-01-06)
PROC: 0D1B0Z4 Bypass Ileum to Cutaneous, Open Approach (ICD-10-PCS; 2017-01-06)
PROC: 0DQE0ZZ Repair Large Intestine, Open Approach (ICD-10-PCS; 2017-01-06)
PROC: 0T9880Z Drainage of Bilateral Ureters with Drainage Device, Via Natural or Artificial Opening Endoscopic (ICD-10-PCS; 2017-01-06)
PROC: 0DBN0ZZ Excision of Sigmoid Colon, Open Approach (ICD-10-PCS; principal; 2017-01-06 12:53)
PROC: 0DBP0ZZ Excision of Rectum, Open Approach (ICD-10-PCS; 2017-01-06 12:53)
PROC: 30233N1 Transfusion of Nonautologous Red Blood Cells into Peripheral Vein, Percutaneous Approach (ICD-10-PCS; 2017-01-07)
DX: C19 Malignant neoplasm of rectosigmoid junction (principal); D63.0 Anemia in neoplastic disease; F12.10 Cannabis abuse, uncomplicated; Z87.891 Personal history of nicotine dependence; Z92.21 Personal history of antineoplastic chemotherapy; Z92.3 Personal history of irradiation
CPT/HCPCS: 36430; 80048; 85014; 85018; 85025; 86850; 86900; 86901; 86920; 86922; 88309; 94150; C1769; C9113; J0131; J0690; J1100; J1130; J1170; J1885; J1940; J2250; J2270; J2370; J2405; J2765; J3010; J3480; J7040; J7050; J7120; P9016

== ENCOUNTER → 2016-12-30 | Outpatient (CLI) | payer OTHER ==
[~2016-12-30] MED LIST changes: +FERR325C PO; +TYLETAB34 PO
[2016-12-30 09:29] LABS: AUTOMATED NEUTROPHIL # 8.9 TH/MM3 (1.8-7.7); BASOPHIL % 0.2 % (0.0-2.0); EOSINOPHIL # 0.1 TH/MM3 (0-0.4); EOSINOPHIL % 1.2 % (0.0-4.0); HEMO FLAGS DIFF FINAL; LYMPH % 3.5 % (9.0-44.0); LYMPHOCYTE # 0.4 TH/MM3 (1.0-4.8); MEAN CELL VOLUME 74.6 FL (80.0-100.0); MEAN CORPUSCULAR HEMOGLOBIN 23.1 PG (27.0-34.0); MEAN CORPUSCULAR HGB CONC 30.9 % (32.0-36.0); MONO % 7.6 % (0.0-8.0); NEUT % 87.5 % (16.0-70.0); PLATELET COUNT 550 TH/MM3 (150-450); RED BLOOD COUNT 4.16 MIL/MM3 (4.50-5.90); RED CELL DISTRIBUTION WIDTH 20.4 % (11.6-17.2); WHITE BLOOD COUNT 10.2 TH/MM3 (4.0-11.0)
[2016-12-30 09:39] LABS: APTT (PATIENT) 27.8 SEC (24.3-30.1); INTERNATIONAL NORMALIZED RATIO 1.1 RATIO; PROTHROMBIN TIME - PATIENT 12.6 SEC (9.8-11.6)
[2016-12-30 09:45] LABS: BLOOD, URINE TRACE (NEG); COMMENT (UR) CULT NOT INDICATED; CULTURE IF INDICATED CULT NOT INDICATED; GLUCOSE,URINE NEG (NEG); KETONE, URINE NEG (NEG); MUCUS URINE FEW /lpf (OCC); NITRITE,URINE NEG (NEG); URINE COLOR YELLOW (YELLW/STRAW)
[2016-12-30 09:58] LABS: ANION GAP 8 MEQ/L (5-15); AST (GOT) 13 U/L (15-37); BICARBONATE 28.6 MEQ/L (21.0-32.0); BLOOD UREA NITROGEN 11 MG/DL (7-18); CHLORIDE 99 MEQ/L (98-107); GLOMERULAR FILTRATION RATE 103 ML/MIN (>89); GLUCOSE,FASTING 101 MG/DL (74-99); POTASSIUM 3.7 MEQ/L (3.5-5.1); SODIUM (NA) 136 MEQ/L (136-145)
[2016-12-30 09:59] LABS: ALT (GPT) 23 U/L (12-78)
[2016-12-30 10:01] LABS: ALKALINE PHOSPHATASE 106 U/L (45-117); TOTAL BILIRUBIN ADULT 0.2 MG/DL (0.2-1.0)
--- NOTE | 2016-12-30 22:58 | EKG ---
Date Performed: 12/30/2016 Time Performed: 08:22:17 PTAGE: 51 years EKG: SINUS TACHYCARDIA ABNORMAL RHYTHM ECG PREVIOUS TRACING : 10/02/2016 15.23 Compared to prior tracing no significant change DOCTOR: Alexa John Interpretating Date/Time 12/30/2016 22:55:52
== END ==
LOC: CPRE 07:56
PROVIDERS: ATTEND Colon & Rectal Surgery
DX: Z01.812 Encounter for preprocedural laboratory examination (principal); Z01.810 Encounter for preprocedural cardiovascular examination; C20 Malignant neoplasm of rectum; R94.31 Abnormal electrocardiogram [ECG] [EKG]
CPT/HCPCS: 36415; 80053; 81001; 82378; 85025; 85610; 85730; 93005

== ENCOUNTER 2017-01-27 06:10 | Day surgery (SDC) | payer OTHER ==
[~2017-01-27] VITALS: Ht 177.8 cm; Wt 62.7 kg
[~2017-01-27 06:10] MED LIST changes: -FERR325C PO
[2017-01-27 06:37] VITALS: BP 127/78; PULSE 89; RESP 20; TEMP 98.1; O2SAT 99
[2017-01-27] MEDS ORDERED: SODIUM CHLORIDE 0.9% 1000 ML IV SCH (07:00)
[2017-01-27] MEDS ORDERED: ceFAZolin 2 GM PREMIX 50 ML - implanted port/tunneled catheter insertion IV SCH (07:00)
[2017-01-27] MEDS ORDERED: VANCOMYCIN 1000 MG/NS 250 ML - implanted port/tunneled catheter IV SCH ×2 (07:00)
[2017-01-27 07:30] LABS: AUTOMATED NEUTROPHIL # 5.2 TH/MM3 (1.8-7.7); BASOPHIL # 0.2 TH/MM3 (0-0.2); BASOPHIL % 2.6 % (0.0-2.0); EOSINOPHIL # 0.5 TH/MM3 (0-0.4); EOSINOPHIL % 7.8 % (0.0-4.0); HEMATOCRIT 36.6 % (39.0-51.0); HEMO FLAGS DIFF FINAL; LYMPH % 7.3 % (9.0-44.0); LYMPHOCYTE # 0.5 TH/MM3 (1.0-4.8); MEAN CELL VOLUME 78.7 FL (80.0-100.0); MEAN CORPUSCULAR HEMOGLOBIN 25.5 PG (27.0-34.0); MEAN CORPUSCULAR HGB CONC 32.4 % (32.0-36.0); MONO % 7.5 % (0.0-8.0); NEUT % 74.8 % (16.0-70.0); PLATELET COUNT 297 TH/MM3 (150-450); RED BLOOD COUNT 4.66 MIL/MM3 (4.50-5.90); RED CELL DISTRIBUTION WIDTH 19.8 % (11.6-17.2)
[2017-01-27] MEDS ORDERED: fentaNYL CITRATE 250 MCG/5 ML AMP ONE (07:35)
[2017-01-27] MEDS ORDERED: MIDAZOLAM HCL 5 MG/5 ML VIAL ONE (07:35)
[2017-01-27 07:37] LABS: APTT (PATIENT) 26.8 SEC (24.3-30.1); PROTHROMBIN TIME - PATIENT 11.1 SEC (9.8-11.6)
[2017-01-27] MEDS ORDERED: LIDOCAINE 1%/EPINEPHrine 1:100,000 SOLN 20 ML VIAL ONE (07:59)
[2017-01-27] MEDS ORDERED: MIDAZOLAM HCL 2 MG/2 ML VIAL ONE (08:41)
[2017-01-27 09:05] VITALS: BP 108/58; PULSE 100; RESP 18; TEMP 98.3; O2SAT 98
[2017-01-27 09:20] VITALS: BP 107/63; PULSE 111; RESP 20; O2SAT 99
[2017-01-27 09:50] VITALS: BP 115/69; PULSE 94; RESP 20; O2SAT 99
--- NOTE | 2017-01-27 09:58 | PD.RAD ---
Post Procedure Progress Note Pre Procedure Diagnosis: (1) Rectal cancer Post Procedure Diagnosis: (1) Rectal cancer Procedure Date: Jan 27, 2017 Supervising Radiologist: Miquel Nunez Proceduralist/Assist: Nena Mckeon RT(R) Anesthesia: Local, Conscious Sedation Plan of Activity Patient to Unit: ROPU Patient Condition: Good See PACS Report for procedural detail/treatment Central Venous Access Device Procedure 1 Right Internal Jugular Infusaport Placement single lumen Croatian: 8 Miquel Nunez MD Jan 27, 2017 09:58
[2017-01-27] MEDS ORDERED: SODIUM CHLORIDE 0.9% FLUSH 10 ML FLUSH IVF PRN (10:00)
[2017-01-27 10:20] VITALS: BP 115/69; PULSE 101; RESP 18; O2SAT 99
[2017-01-27 10:50] VITALS: BP 111/67; PULSE 98; RESP 20; O2SAT 98
--- NOTE | 2017-01-27 12:28 | RADRPT ---
EXAM DATE/TIME: 01/27/2017 08:02 [facility] COMPARISON: No previous studies available for comparison. INDICATIONS : Patient with history of rectal cancer in need of port placement. MEDICAL HISTORY : 1.Rectal cancer 2.Kidney stones SURGICAL HISTORY : 1.Colostomy 2.Lithotripsy 3.Back surgery ENCOUNTER: Initial ACUITY: 4-6 months PAIN SCORE: 0/10 FLUORO TIME: minutes IMAGE SERIES: 1 SEDATION TIME: 60 minutes ACCESS: Right internal jugular vein SEDATION: 1.) 6 mg midazolam (Versed) IV 2.) 300 mcg fentanyl (Sublimaze) IV Prophylactic antibiotics were administered with appropriate pre-procedure timing. Vancomycin within 2 hours of procedure, Ancef (or alternative) within 1 hour of procedure. DEVICE: 1. 8 [place] single lumen Angiodynamics Smart power port PROCEDURE : 1. Continuous pulse oximetry and EKG monitoring. 2. Intravenous conscious sedation. 3. Ultrasound guidance for venous access. 4. Fluoroscopic guided implantable central venous port placement. The patient was placed supine. The neck was prepped in sterile fashion. Full sterile technique was u sed, including cap, mask, sterile gloves and gown, and a large sterile sheet. Hand hygiene and 2% ch lorhexidine Betadine was utilized per protocol for cutaneous antisepsis with appropriate dry time for site. The skin and subcutaneous tissues were infiltrated with local anesthetic solution. Under direct ultrasound guidance, central venous access was accomplished in the targeted vessel. The ultrasound images depicting access guidance were stored and saved to PACS for permanent record. A s ubcutaneous pocket was created using blunt dissection. The port was introduced to the pocket. The c atheter tubing was fed through a subcutaneous tunnel to the venotomy site. The catheter tubing was c ut to a suitable length and then was introduced through a valved Peel-Away sheath and positioned with catheter tubing tip at the cavo-atrial junction level. The pocket incision was closed with subcutic ular Vicryl suture. Steri-Strips were applied. The port was flushed and locked with heparin solutio n per protocol. Sterile dressing was applied to the site. The patient tolerated the procedure well. Conscious sedation was performed with the prescribed dosages and duration as above in the presence of an independent trained radiology nurse to assist in the monitoring of the patient. EKG and oximetry remained stable throughout the procedure. The patient tolerated the procedure well and there were no complications. The patient was sent to post anesthesia recovery in stable condition. CONCLUSION: Uncomplicated ultrasound and fluoroscopic guided implanted central venous port catheter placement as described in detail above. An 8 Luxembourger Power port was placed. Miquel Nunez MD on January 27, 2017 at 12:27 Board Certified Radiologist. This report was verified electronically.
== END 2017-01-27 11:10 | disposition home or self-care (01) ==
LOC: HROP 06:10 → HRIP 06:19 → HROP 11:10
PROVIDERS: ATTEND Internal Medicine Hematology & Oncology
DX: C20 Malignant neoplasm of rectum (principal); Z01.818 Encounter for other preprocedural examination; Z01.810 Encounter for preprocedural cardiovascular examination
CPT/HCPCS: 36561; 76937; 77001; 85025; 85610; 85730; 99152; 99153; C1788; J0690; J1642; J2250; J3010

== ENCOUNTER → 2017-05-25 | Outpatient (CLI) | payer OTHER ==
--- NOTE | 2016-12-02 16:13 | RADRPT ---
EXAM DATE/TIME: 12/02/2016 14:56 [facility] COMPARISON: CT ABDOMEN & PELVIS W CONTRAST, September 30, 2016, 22:49. INDICATIONS : Follow up chemo and radiation therapy, history of rectal cancer. ORAL CONTRAST: No oral contrast ingested. RADIATION DOSE: 6.88 CTDIvol (mGy) MEDICAL HISTORY : Renal calculi. Carcinoma, rectal. SURGICAL HISTORY : Colostomy. ENCOUNTER: Initial ACUITY: 1 day PAIN SCALE: 2/10 LOCATION: pelvis TECHNIQUE: Volumetric scanning of the abdomen and pelvis was performed. Using automated exposure control and ad justment of the mA and/or kV according to patient size, radiation dose was kept as low as reasonably achievable to obtain optimal diagnostic quality images. FINDINGS: LOWER LUNGS: The visualized lower lungs are clear. Coronary artery calcifications. LIVER: Homogeneous density without lesion. There is no dilation of the biliary tree. No calcified gallston es. SPLEEN: Normal size without lesion. PANCREAS: Within normal limits. KIDNEYS: 2 mm nonobstructing lower pole calculus on the right. No evidence of hydronephrosis. 2 cm cyst extend ing off of the lower pole of the left kidney ADRENAL GLANDS: 2.3 cm myelolipoma of the left adrenal gland. VASCULAR: Aortic calcification. Aortic diameter are within normal limits. BOWEL/MESENTERY: Marked circumferential rectal wall thickening is again identified consistent with known rectal carcin carlito. No extraluminal gas or fluid collections identified. Scattered diverticula. Appendix within norm al limits. ABDOMINAL WALL: Left lower quadrant stoma. RETROPERITONEUM: There is no lymphadenopathy. BLADDER: No wall thickening or mass. REPRODUCTIVE: Within normal limits. INGUINAL: There is no lymphadenopathy or hernia. MUSCULOSKELETAL: Bilateral hip osteoarthritis. CONCLUSION: 1. Marked rectal wall thickening again identified, similar to the prior study. Patient has known rect al carcinoma. No evidence of abscess. 2. Punctate nonobstructing right renal calculus. 3. Left adrenal myelolipoma. Gigi Fernández MD on December 02, 2016 at 15:59 Board Certified Radiologist. This report was verified electronically.
[~2017-05-25] MED LIST changes: -HYDR-3516 PO; +IOHEXOL 350 MG/ML 10 ML VIAL (for RAD DIAG) IVCONTRAST ONE
--- NOTE | 2017-05-25 15:09 | RADRPT ---
EXAM DATE/TIME: 05/25/2017 14:01 [facility] COMPARISON: CT ABDOMEN & PELVIS W CONTRAST, September 30, 2016, 22:49. INDICATIONS : Restaging rectal cancer IV CONTRAST: 95 cc Omnipaque 350 (iohexol) IV ORAL CONTRAST: Prescribed oral contrast ingested. RADIATION DOSE: 14.98 CTDIvol (mGy) ; Combined studies - Thorax/Abdomen/Pelvis MEDICAL HISTORY : Carcinoma, rectal. SURGICAL HISTORY : Colon resection. Colostomy. ENCOUNTER: Subsequent ACUITY: 1 day PAIN SCALE: 0/10 LOCATION: abdomen TECHNIQUE: Volumetric scanning of the abdomen and pelvis was performed. Using automated exposure control and ad justment of the mA and/or kV according to patient size, radiation dose was kept as low as reasonably achievable to obtain optimal diagnostic quality images. DICOM format image data is available electro nically for review and comparison. FINDINGS: LOWER LUNGS: See the CT of the thorax dictated separately. LIVER: Homogeneous density without lesion. There is no dilation of the biliary tree. No calcified gallston es. SPLEEN: Mild splenomegaly which is a new finding. No lesions within the spleen. PANCREAS: Within normal limits. KIDNEYS: Normal in size and shape. There is no mass or hydronephrosis. A 2 mm nonobstructing stone is seen i nvolving the lower pole of the right kidney. ADRENAL GLANDS: Again seen is a 2.8 cm fat containing nodule involving the left adrenal gland. This is stable. Hounsf ield units are -68. Right adrenal gland is normal. VASCULAR: There is no aortic aneurysm. BOWEL/MESENTERY: Surgical clips are seen associated with the rectum. There is an ileostomy involving the right lower q uadrant. Large and small bowel loops are normal in caliber. No free air or free fluid. ABDOMINAL WALL: Within normal limits. RETROPERITONEUM: There is no lymphadenopathy. BLADDER: No wall thickening or mass. REPRODUCTIVE: Within normal limits. INGUINAL: There is no lymphadenopathy or hernia. MUSCULOSKELETAL: Within normal limits for patient age. CONCLUSION: 1. No CT evidence to suggest recurrent or residual disease in the abdomen. 2. Mild splenomegaly which is a new finding. No splenic mass or splenic vein thrombosis. 3. 2.8 cm lipid rich adenoma involving the left adrenal gland. 4. Right lower quadrant ileostomy. 5. 2 mm nonobstructing right renal stone. Aguilar Castro Jr., MD on May 25, 2017 at 15:03 Board Certified Radiologist. This report was verified electronically.
--- NOTE | 2017-05-25 15:11 | RADRPT ---
EXAM DATE/TIME: 05/25/2017 14:01 [facility] COMPARISON: CT THORAX W CONTRAST, October 02, 2016, 8:01. INDICATIONS : Restaging rectal cancer IV CONTRAST: 95 cc Omnipaque 350 (iohexol) IV ; Cumulative dose for multiple exams. RADIATION DOSE: 14.98 CTDIvol (mGy) ; Combined studies - Thorax/Abdomen/Pelvis MEDICAL HISTORY : Carcinoma, rectal. SURGICAL HISTORY : Colon resection. Colostomy. ENCOUNTER: Initial ACUITY: 1 day PAIN SCALE: 0/10 LOCATION: chest TECHNIQUE: Volumetric scanning of the chest was performed. Using automated exposure control and adjustment of t he mA and/or kV according to patient size, radiation dose was kept as low as reasonably achievable to obtain optimal diagnostic quality images. DICOM format image data is available electronically for review and comparison. Follow-up recommendations for detected pulmonary nodules are based at a minimum on nodule size and pa tient risk factors according to Fleischner Society Guidelines. FINDINGS: LUNGS: There is no consolidation or pneumothorax. No concerning pulmonary nodule is visualized. PLEURA: There is no pleural thickening or pleural effusion. MEDIASTINUM: The heart and great vessels demonstrate no acute abnormality. There is no mediastinal or hilar lymph adenopathy. AXILLAE: Within normal limits. No lymphadenopathy. SKELETAL: Within normal limits for patient age. MISCELLANEOUS: The visualized upper abdominal organs demonstrate no acute abnormality. Stable lipoma in the left adr enal gland CONCLUSION: Normal examination. Right-sided [id number] in good position. Stable left adrenal lipoma Mitchell Onofre MD on May 25, 2017 at 15:08 Board Certified Radiologist. This report was verified electronically.
== END ==
LOC: HRAD 12-02 14:13
PROVIDERS: ATTEND Internal Medicine Hematology & Oncology
DX: C20 Malignant neoplasm of rectum (principal)
CPT/HCPCS: 71260; 74177; Q9967; 74176

== ENCOUNTER → 2017-07-06 | Outpatient (CLI) | payer OTHER ==
[~2017-07-06] MED LIST changes: +HYDR-3516 PO; -IOHEXOL 350 MG/ML 10 ML VIAL (for RAD DIAG) IVCONTRAST ONE
[2017-07-06 10:15] LABS: AUTOMATED NEUTROPHIL # 3.5 TH/MM3 (1.8-7.7); BASOPHIL % 0.7 % (0.0-2.0); EOSINOPHIL # 0.2 TH/MM3 (0-0.4); EOSINOPHIL % 4.3 % (0.0-4.0); HEMATOCRIT 46.4 % (39.0-51.0); HEMOGLOBIN 15.6 GM/DL (13.0-17.0); LYMPH % 9.7 % (9.0-44.0); LYMPHOCYTE # 0.5 TH/MM3 (1.0-4.8); MEAN CELL VOLUME 87.5 FL (80.0-100.0); MEAN CORPUSCULAR HEMOGLOBIN 29.4 PG (27.0-34.0); MEAN CORPUSCULAR HGB CONC 33.6 % (32.0-36.0); MEAN PLATELET VOLUME 6.8 FL (7.0-11.0); MONOCYTE # 0.5 TH/MM3 (0-0.9); NEUT % 75.3 % (16.0-70.0); PLATELET COUNT 104 TH/MM3 (150-450); RED CELL DISTRIBUTION WIDTH 18.5 % (11.6-17.2); WHITE BLOOD COUNT 4.6 TH/MM3 (4.0-11.0)
[2017-07-06 10:23] LABS: INTERNATIONAL NORMALIZED RATIO 1.1 RATIO; PROTHROMBIN TIME - PATIENT 11.3 SEC (9.8-11.6)
[2017-07-06 10:32] LABS: ALT (GPT) 38 U/L (12-78); AST (GOT) 30 U/L (15-37); BICARBONATE 31.2 MEQ/L (21.0-32.0); BLOOD UREA NITROGEN 13 MG/DL (7-18); CALCIUM 9.3 MG/DL (8.5-10.1); CHLORIDE 106 MEQ/L (98-107); CREATININE 1.01 MG/DL (0.60-1.30); GLOMERULAR FILTRATION RATE 77 ML/MIN (>89); GLUCOSE,FASTING 111 MG/DL (74-99); SODIUM (NA) 142 MEQ/L (136-145)
[2017-07-06 10:35] LABS: ALKALINE PHOSPHATASE 152 U/L (45-117); TOTAL BILIRUBIN ADULT 0.5 MG/DL (0.2-1.0); TOTAL PROTEIN 7.7 GM/DL (6.4-8.2)
[2017-07-06 11:52] LABS: BILIRUBIN, URINE NEG (NEG); BLOOD, URINE NEG (NEG); GLUCOSE,URINE NEG (NEG); KETONE, URINE NEG (NEG); MUCUS URINE FEW /lpf (OCC); NITRITE,URINE NEG (NEG); TRANSITIONAL EPI CELLS, URINE <1 /hpf; URINE COLOR YELLOW (YELLW/STRAW); URINE LEUKOCYTE ESTERASE NEG (NEG)
== END ==
LOC: CPRE 09:28
PROVIDERS: ATTEND Colon & Rectal Surgery
DX: Z01.812 Encounter for preprocedural laboratory examination (principal); C20 Malignant neoplasm of rectum
CPT/HCPCS: 36415; 80053; 81001; 85025; 85610; 85730

== ENCOUNTER 2017-07-12 12:01 | Inpatient (IN) | payer OTHER ==
[~2017-07-12] VITALS: Ht 177.8 cm; Wt 78.2 kg
[2017-07-12] MEDS: DEXT 5%-NACL 0.9% 1000 ML INJ 1,000 ML IV SCH ×2 (12:00→20:00)
[~2017-07-12 12:01] MED LIST changes: +DEXAMETHASONE SOD PHOS 4 MG/ML VIAL IV ONE; +GLYCOPYRROLATE 1 MG/5 ML SYRINGE IV PUSH ONE; -HYDR-3516 PO; +LIDOCAINE HCL 1% PF 5 ML SYRINGE OTHER ONE; +NEOSTIGMINE 5 MG/5 ML SYRINGE IV PUSH ONE; +ONDANSETRON HCL 4 MG/2 ML VIAL IV PUSH ONE; +PHENYLEPH/NS 1000 MCG/10 ML SYR IV ONE; +PROPOFOL 200 MG/20 ML AMP IV ONE; +ROCURONIUM INJ 50 MG/5 ML SYRINGE IV PUSH ONE; -TYLETAB34 PO
[2017-07-12] MEDS ORDERED: METRONIDAZOLE 500 MG/100 ML ISONTONIC SOLN IV SCH (12:30)
[2017-07-12] MEDS ORDERED: ceFAZolin 1,000 MG/NS 100 ML IV SCH ×2 (12:30)
[2017-07-12] MEDS ORDERED: SODIUM CHLORID 0.9% 500 ML IV PRN (12:30)
[2017-07-12] MEDS ORDERED: CHLORHEXIDINE GLUCONATE 2 % 1 PACK (2 CLOTHS) TOPICAL PRN (12:30)
[2017-07-12] MEDS ORDERED: LACTATED RINGER'S 1000 ML IV PRN (12:30)
[2017-07-12] MEDS ORDERED: ALVIMOPAN 12 MG CAPSULE - On Call PO SCH (12:30)
[2017-07-12] MEDS ORDERED: METOPROLOL TARTRATE 25 MG TAB PO PRN (12:30)
[2017-07-12] MEDS ORDERED: POVIDONE IODINE 5% (ANTISEPSIS KIT) 4 APPLICATIONS EACH NARE PRN (12:30)
--- NOTE | 2017-07-12 13:35 | PD.HP.UP ---
H&P Update Note The Pre-Admit History and Physical Examination regarding the above named patient was reviewed (including, but not limited to, vital signs, heart, lungs, co-morbid conditions), and upon re-examination it is noted that: the patient's condition has not significantly changed since the last examination. Shan Michaud MD Jul 12, 2017 13:35
[2017-07-12] MEDS ORDERED: BUPIVACAINE/EPINEPHRINE 0.25% PF 30 ML VIAL ONE (14:33)
[2017-07-12] MEDS ORDERED: Post-op Orders (for Pharmacy) XX ONE (15:55)
[2017-07-12] MEDS ORDERED: ACETAMINOPHEN 325 MG TAB PO PRN (16:00)
[2017-07-12] MEDS ORDERED: ENALAPRILAT 2.5 MG/2 ML VIAL IV PUSH PRN (16:00)
[2017-07-12] MEDS ORDERED: ENALAPRILAT 1.25 MG/ML VIAL IV PUSH PRN (16:00)
[2017-07-12] MEDS ORDERED: POTASSIUM CHLOR 40 MEQ PREMIX 100 ML IV PRN (16:00)
[2017-07-12] MEDS ORDERED: POTASSIUM CHLOR 20 MEQ PREMIX 100 ML IV PRN (16:00)
[2017-07-12] MEDS ORDERED: BENZOCAINE 6 MG/MENTHOL 10 MG LOZENGE BUCCAL PRN (16:00)
[2017-07-12] MEDS ORDERED: ACETAMINOPHEN/HYDROcodone 325 MG/5 MG TAB PO PRN (16:00)
[2017-07-12] MEDS ORDERED: MORPHINE SULFATE 30 MG/30 ML PCA IV SCH (16:00)
[2017-07-12] MEDS ORDERED: ONDANSETRON HCL 4 MG/2 ML VIAL IV PUSH PRN (16:00)
[2017-07-12] MEDS ORDERED: BUPIVACAINE HCL PF 0.5% 30 ML VIAL NB SCH (16:00)
[2017-07-12] MEDS ORDERED: KETOROLAC TROMETHAMINE 30 MG/ML (IVP) VIAL IVP PRN (16:00)
[2017-07-12] MEDS: PCA - TOTAL MG MORPHINE DELIVERED PER SHIFT SCH ×2 (16:00→22:00)
[2017-07-12] MEDS ORDERED: NALOXONE HCL 0.4 MG/ML AMP IV PUSH PRN (16:00)
[2017-07-12] MEDS ORDERED: MIDAZOLAM HCL 2 MG/2 ML VIAL ONE (16:02)
[2017-07-12] MEDS ORDERED: *morphine SULFATE 8 MG/ML PERIprocedure ONLY ONE (16:06)
[2017-07-12] MEDS ORDERED: *ONDANSETRON 4 MG VIAL PERIprocedural Use ONLY ONE (16:07)
[2017-07-12] MEDS ORDERED: DO NOT ADM ANY ANTICOAGULANT DRUGS PRN (16:30)
[2017-07-12] MEDS: D5-NS + KCL 20 MEQ INJ 1,000 ML IV SCH (16:45)
[2017-07-12 17:44] VITALS: BP 136/76; PULSE 98; RESP 18; TEMP 97.1; O2SAT 98
[2017-07-12 20:00] VITALS: BP 128/80; PULSE 101; RESP 20; TEMP 97.8; O2SAT 98
[2017-07-12] MEDS: METOCLOPRAMIDE HCL 10 MG/2 ML VIAL IVS SCH (20:38)
[2017-07-12] MEDS: metroNIDAZOLE 500 MG INJ 100 ML IV SCH (21:02)
[2017-07-13] VITALS (7 sets, daily range): BP systolic 107–128; BP diastolic 64–77; PULSE 92–102; RESP 17–20; TEMP 97.2–98; O2SAT 96–99
[2017-07-13] MEDS: D5-NS + KCL 20 MEQ INJ 1,000 ML IV SCH ×3 (03:02→15:18)
[2017-07-13] MEDS: DEXT 5%-NACL 0.9% 1000 ML INJ 1,000 ML IV SCH ×3 (03:02→20:00)
[2017-07-13] MEDS: PCA - TOTAL MG MORPHINE DELIVERED PER SHIFT SCH ×2 (06:00→14:00)
[2017-07-13] MEDS: metroNIDAZOLE 500 MG INJ 100 ML IV SCH ×2 (06:02→15:18)
[2017-07-13 07:40] LABS: AUTOMATED NEUTROPHIL # 9.6 TH/MM3 (1.8-7.7); BASOPHIL % 0.3 % (0.0-2.0); EOSINOPHIL % 0.1 % (0.0-4.0); HEMATOCRIT 42.7 % (39.0-51.0); HEMOGLOBIN 14.5 GM/DL (13.0-17.0); LYMPH % 3.6 % (9.0-44.0); LYMPHOCYTE # 0.4 TH/MM3 (1.0-4.8); MEAN CELL VOLUME 87.5 FL (80.0-100.0); MEAN CORPUSCULAR HEMOGLOBIN 29.7 PG (27.0-34.0); MEAN CORPUSCULAR HGB CONC 33.9 % (32.0-36.0); MEAN PLATELET VOLUME 6.9 FL (7.0-11.0); MONO % 7.6 % (0.0-8.0); MONOCYTE # 0.8 TH/MM3 (0-0.9); NEUT % 88.4 % (16.0-70.0); PLATELET COUNT 106 TH/MM3 (150-450); RED BLOOD COUNT 4.88 MIL/MM3 (4.50-5.90); RED CELL DISTRIBUTION WIDTH 17.9 % (11.6-17.2); WHITE BLOOD COUNT 10.9 TH/MM3 (4.0-11.0)
[2017-07-13 08:03] LABS: BICARBONATE 24.6 MEQ/L (21.0-32.0); CALCIUM 8.3 MG/DL (8.5-10.1); CREATININE 0.83 MG/DL (0.60-1.30)
[2017-07-13] MEDS ORDERED: ALVIMOPAN 12 MG CAPSULE - Post-op dosing PO SCH (09:00)
[2017-07-13] MEDS: PANTOPRAZOLE SOD 40 MG DELAYED RELEASE TAB PO SCH (09:00)
[2017-07-13] MEDS: PANTOPRAZOLE SODIUM 40 MG VIAL IVP SCH (09:58)
[2017-07-13] MEDS: METOCLOPRAMIDE HCL 10 MG/2 ML VIAL IVS SCH (09:58)
[2017-07-13] MEDS ORDERED: METOCLOPRAMIDE HCL 10 MG/2 ML VIAL IVS PRN (17:45)
--- NOTE | 2017-07-13 17:51 | HHI.PR ---
Subjective Remarks C/R Surg POD #1 afebrile, VSS UO good rodrigue PO Objective - Vital Signs Date Time Temp Pulse Resp B/P (MAP) Pulse Ox O2 Delivery O2 Flow Rate FiO2 07/13/17 16:00 97.9 95 17 119/70 (86) 96 07/13/17 06:12 Nasal Cannula 2.00 Result Diagram: 07/13/17 0720 07/13/17 0720 Objective Remarks PE alert Abd - soft, wound dry, +flatus A/P Assessment and Plan Imp: stable post-op OOB adv diet decr IVF Shan Michaud MD Jul 13, 2017 17:51
[2017-07-13] MEDS: ALVIMOPAN 12 MG CAPSULE PO SCH (20:27)
[2017-07-13] MEDS: ACETAMINOPHEN/HYDROcodone 325 MG/5 MG TAB PO PRN (20:30)
--- NOTE | 2017-07-13 22:10 | MP ---
cc: BILLY REHMAN M.D. DATE OF SURGERY: 07/12/2017 PREOPERATIVE DIAGNOSIS: 1. History of rectal cancer. 2. Attention to ileostomy. PROCEDURE 1. Exploratory laparotomy with segmental small bowel resection and closure of ileostomy. 2. Removal of [id number]. POSTOPERATIVE DIAGNOSIS 1. History of rectal cancer. 2. Attention to ileostomy. SURGEON Dr. Rehman PROCEDURE The patient was placed in the supine position. After adequate general anesthesia his abdomen was prepped with Betadine solution and draped in the usual sterile fashion. Elliptical incision was made around the ileostomy taking both proximal and distal limbs from the subcutaneous tissue, releasing the fascial attachments and mobilizing the bowel up onto the abdominal wound. Additional adhesions to the parietal peritoneum were taken down. Avascular plane was created both proximal and distal to the stoma and the bowel divided distally between Nikki clamps proximally with the DULCE stapling device. Intervening mesentery taken between Kellys obtaining hemostasis with Vicryl ties. Bowel continuity was then restored by firing the DULCE stapler across the antimesenteric ends of the bowel closing the enterotomy with a TA60 stapler. The mesenteric defect closed with Vicryl suture and a 3-0 Vicryl crotch suture was placed as well. Bowel was then returned to the abdominal cavity. The abdomen was irrigated copiously. Hemostasis achieved. The abdominal incision closed in two layers using #1 PDS sutures to reapproximate the respective fascial layers. The subcu tissue was irrigated copiously and the skin closed with a row of surgical francois. The wound area washed with normal saline and dried, sterile dressing of Telfa and gauze applied. Next, attention was turned to the right subclavian area and the area was prepped with Betadine solution and draped in usual sterile fashion. The area around the port was infiltrated with 0.5% Marcaine. Small transverse incision was made over the [id number] catheter and dissected through the subcutaneous tissue identifying the catheter and removing it completely. The reservoir was then excised from the subcutaneous tissue. The wound was hemostatic. Subcutaneous suture was placed to reapproximate the skin. Sterile dressing of Telfa and gauze applied. The patient tolerated both procedures well and was brought to the recovery room in stable condition. The sponge and needle counts were correct at the end of the procedure. MD JYOTI Gamboa /9:27 PM /9:58 PM
[2017-07-14] VITALS: BP 120/65; PULSE 92; RESP 18; TEMP 98.2; O2SAT 95
[2017-07-14] MEDS: D5-NS + KCL 20 MEQ INJ 1,000 ML IV SCH (01:53)
[2017-07-14] MEDS: DEXT 5%-NACL 0.9% 1000 ML INJ 1,000 ML IV SCH ×2 (02:09→11:34)
[2017-07-14] MEDS: ACETAMINOPHEN/HYDROcodone 325 MG/5 MG TAB PO PRN ×3 (03:13→13:48)
[2017-07-14 04:00] VITALS: BP 125/62; PULSE 80; RESP 18; TEMP 98.4; O2SAT 100
[2017-07-14 08:00] VITALS: BP 138/89; PULSE 88; RESP 16; TEMP 98.2; O2SAT 95
[2017-07-14] MEDS: PANTOPRAZOLE SODIUM 40 MG VIAL IVP SCH (09:00)
[2017-07-14] MEDS: PANTOPRAZOLE SOD 40 MG DELAYED RELEASE TAB PO SCH (09:00)
[2017-07-14] MEDS: ALVIMOPAN 12 MG CAPSULE PO SCH (09:00)
[2017-07-14 09:15] LABS: AUTOMATED NEUTROPHIL # 4.4 TH/MM3 (1.8-7.7); BASOPHIL % 0.4 % (0.0-2.0); EOSINOPHIL # 0.1 TH/MM3 (0-0.4); EOSINOPHIL % 2.2 % (0.0-4.0); HEMATOCRIT 37.9 % (39.0-51.0); HEMOGLOBIN 12.9 GM/DL (13.0-17.0); LYMPH % 8.4 % (9.0-44.0); LYMPHOCYTE # 0.5 TH/MM3 (1.0-4.8); MEAN CORPUSCULAR HEMOGLOBIN 29.6 PG (27.0-34.0); MONO % 9.4 % (0.0-8.0); MONOCYTE # 0.5 TH/MM3 (0-0.9); NEUT % 79.6 % (16.0-70.0); PLATELET COUNT 56 TH/MM3 (150-450); RED BLOOD COUNT 4.35 MIL/MM3 (4.50-5.90); RED CELL DISTRIBUTION WIDTH 17.5 % (11.6-17.2); WHITE BLOOD COUNT 5.5 TH/MM3 (4.0-11.0)
[2017-07-14 09:40] LABS: BICARBONATE 25.2 MEQ/L (21.0-32.0); CALCIUM 8.3 MG/DL (8.5-10.1); CREATININE 0.84 MG/DL (0.60-1.30)
--- NOTE | 2017-07-14 10:31 | HHI.PR ---
Subjective Remarks C/R Surg POD #2 afebrile, VSS UO good rodrigue PO Objective - Vital Signs Date Time Temp Pulse Resp B/P (MAP) Pulse Ox O2 Delivery O2 Flow Rate FiO2 07/14/17 10:05 18 07/14/17 08:00 98.2 88 138/89 (105) 95 07/13/17 06:12 Nasal Cannula 2.00 Result Diagram: 07/14/17 0700 07/14/17 0710 Objective Remarks PE alert Abd - soft, wound dry, +flatus A/P Assessment and Plan Imp: OOB adv diet decr IVF DC plans Shan Michaud MD Jul 14, 2017 10:31
[2017-07-14] MEDS ORDERED: HYDR-3516 PO (10:40)
[2017-07-14 12:00] VITALS: BP 145/82; PULSE 92; RESP 16; TEMP 97.4; O2SAT 98
[2017-07-14 14:48] VITALS: RESP 18
== END 2017-07-14 16:11 | disposition home or self-care (01) | DRG 331 ==
LOC: HSDI 12:01 → N07A 17:32
PROVIDERS: ADMIT Colon & Rectal Surgery; ATTEND Colon & Rectal Surgery
PROC: 0JPT3WZ Removal of Totally Implantable Vascular Access Device from Trunk Subcutaneous Tissue and Fascia, Percutaneous Approach (ICD-10-PCS; 2017-07-12)
PROC: 0DBB0ZZ Excision of Ileum, Open Approach (ICD-10-PCS; principal; 2017-07-12 14:22)
DX: C20 Malignant neoplasm of rectum (principal); Z43.2 Encounter for attention to ileostomy; F12.10 Cannabis abuse, uncomplicated; Z85.048 Personal history of other malignant neoplasm of rectum, rectosigmoid junction, and anus
CPT/HCPCS: 80048; 85025; 86850; 86900; 86901; 88304; 94150; C9113; J0690; J1100; J1885; J2250; J2270; J2370; J2405; J2710; J2765; J3010; J3480; J7042; J7120